=== PATIENT | female | born 1930 | race Caucasian/White ===

== ENCOUNTER 2016-04-26 09:27 | Day surgery (SDC) | payer MEDICARE, OTHER ==
[2016-04-24 11:23] VITALS: BMI 39.4
[~2016-04-26 09:27] MED LIST: LACTATED RINGERS 1,000 ML IV SCH; Pre Op ABX Message 1 EACH MISC MISCELLANE ONE; TETRACAINE 0.5% OPHTH (PF) DROPS 4 ML BTL OP ONE; TIMOLOL 0.5% OPHTH SOLN (PF) 0.2 ML DROPERETTE OP ONE
[2016-04-26] MEDS: CYCLOPENTOLATE 1% OPHTH SOLN 2 ML BTL OP ONE ×3 (12:33→12:56)
[2016-04-26] MEDS: PHENYLEPHRINE 2.5% OPHTH DRP 2ML OP ONE ×3 (12:36→13:01)
[2016-04-26] MEDS ORDERED: LIDOCAINE 1% 20 ML VIAL (10MG/ML) FOR IV START INTRADERMA ONE (12:55)
[2016-04-26 13:01] VITALS: RESP 16; TEMP 97.7
[2016-04-26] MEDS ORDERED: fentaNYL (PF) 50 MCG/ML 2 ML AMP ONE (13:07)
[2016-04-26] MEDS ORDERED: MIDAZOLAM 2 MG/2 ML VIAL ONE (13:07)
[2016-04-26] MEDS ORDERED: LIDOCAINE 1% (PF) 10MG/ML VIAL MISCELLANE ONE (13:16)
[2016-04-26] MEDS ORDERED: BALANCED SALT IRRIG SOLN COMB2 15 ML IRRIG.SOLN INTRAOCULA ONE (13:16)
[2016-04-26] MEDS ORDERED: HYALURONATE SODIUM INTRAOCULAR 1 EACH SYRINGE (12MG/ML) INTRAOCULA ONE (13:16)
[2016-04-26] MEDS ORDERED: MOXIFLOXACIN HCL 0.5% DROPS 3 ML BTL LEFT EYE ONE (13:19)
[2016-04-26] MEDS ORDERED: EPINEPHrine (PF) 0.3 ML in BALANCED SALT IRRIG SOLN COMB2 500 ML IRRIGATION ONE (13:20)
--- NOTE | 2016-04-26 13:39 | P.OP ---
Date of Procedure: 04/26/16 Preoperative Diagnosis: Ns & CS Postoperative Diagnosis: same Procedure(s) Performed: PIOL, OS Implants: PCB00 23.00 Anesthesia: MAC Surgeon: Ralph Isbell Pathology: none sent Condition: stable Disposition: same day Indications for Procedure: blurry vision Operative Findings: No complications
[2016-04-26 14:15] VITALS: BP 140/77; PULSE 55
--- NOTE | 2016-04-26 21:53 | OP ---
DATE OF SERVICE: 04/26/2016 SURGEON: RYAN PAREKH MD BRICKLAYER SUPERVISOR: PREOPERATIVE DIAGNOSES: Nuclear sclerosis, cortical sclerosis. POSTOPERATIVE DIAGNOSES: Nuclear sclerosis, cortical sclerosis. OPERATION: Phacoemulsification of cataract and intraocular lens implant of the left eye. ANESTHESIA: ESTIMATED BLOOD LOSS: Zero. SPECIMEN TAKEN: None. NARRATIVE: After obtaining the appropriate consent, the patient was brought to the Operating Room where the patient was placed under cardiac monitoring and prepped and draped in the usual sterile manner. At the 5 o'clock position a 15 degree super sharp blade was used to create a paracentesis followed by instillation of 1% Xylocaine MPF 50:50 mix with BSS into the anterior chamber. This was followed by Amvisc to stabilize the anterior chamber. At the 3 o'clock position a self-sealing corneal flap incision was created using 2.8 mm alaina keratome. A cystotome was used to initiate a continuous tear capsulorrhexis which was completed with the Utrata forceps. A Binkhorst cannula was used to hydrodissect the lens nucleus followed by hydrodelineation. Phacoemulsification of the lens was performed utilizing phacochop in 16.26 seconds at 15% power. The remaining cortical material was removed using the irrigation aspiration mode followed by additional 1% Xylocaine MPF into the anterior chamber followed by viscoelastic to stabilize the capsular bag. An JET PCB 00 23.0 diopter posterior chamber lens was placed into the capsular bag without difficulty. The remaining viscoelastic material was removed from the anterior chamber with the irrigation/aspiration. Balanced salt solution was used to normalize the intraocular pressure. The incision was checked for watertight integrity. The patient then received 2 drops of 0.5% timolol followed by 2 drops Vigamox, was lightly patched and shielded in the usual manner. There were no complications from the procedure. The patient tolerated the procedure well and was returned to recovery in good condition.
== END 2016-04-26 14:39 | disposition home or self-care (01) ==
LOC: OR 09:27
PROVIDERS: ATTEND Ophthalmology
DX: H25.012 Cortical age-related cataract, left eye (principal); H25.10 Age-related nuclear cataract, unspecified eye; J45.909 Unspecified asthma, uncomplicated; I51.9 Heart disease, unspecified; I10 Essential (primary) hypertension; K21.9 Gastro-esophageal reflux disease without esophagitis; I25.10 Atherosclerotic heart disease of native coronary artery without angina pectoris; E78.5 Hyperlipidemia, unspecified; I25.2 Old myocardial infarction; Z79.01 Long term (current) use of anticoagulants; Z79.82 Long term (current) use of aspirin; Z79.02 Long term (current) use of antithrombotics/antiplatelets; Z79.891 Long term (current) use of opiate analgesic; Z79.899 Other long term (current) drug therapy; Z88.1 Allergy status to other antibiotic agents; Z88.0 Allergy status to penicillin; Z88.2 Allergy status to sulfonamides; Z88.8 Allergy status to other drugs, medicaments and biological substances
CPT/HCPCS: 66984; C1780; J2250; J0171; J3010; J2001; 99152; 99153

== ENCOUNTER 2016-06-21 06:18 | Day surgery (SDC) | payer BC, MEDICARE, OTHER ==
[2016-06-19 15:54] VITALS: BMI 39.4
[~2016-06-21 06:18] MED LIST changes: +HYDROmorphone 1 MG/ML 1 ML SYRINGE IVP PRN; +ONDANSETRON 4 MG/2 ML VIAL IVP ONE
[2016-06-21] MEDS: CYCLOPENTOLATE 1% OPHTH SOLN 2 ML BTL OP ONE ×3 (06:48→07:02)
[2016-06-21] MEDS: PHENYLEPHRINE 2.5% OPHTH DRP 2ML OP NR ×3 (06:51→07:05)
[2016-06-21 06:56] VITALS: TEMP 98.1
[2016-06-21] MEDS ORDERED: LIDOCAINE 1% 20 ML VIAL (10MG/ML) FOR IV START INTRADERMA ONE (07:09)
[2016-06-21] MEDS ORDERED: fentaNYL (PF) 50 MCG/ML 2 ML AMP ONE (08:26)
[2016-06-21] MEDS ORDERED: MIDAZOLAM 2 MG/2 ML VIAL ONE (08:26)
[2016-06-21] MEDS ORDERED: BALANCED SALT IRRIG SOLN COMB2 15 ML IRRIG.SOLN INTRAOCULA ONE (08:40)
[2016-06-21] MEDS ORDERED: HYALURONATE SODIUM INTRAOCULAR 1 EACH SYRINGE (12MG/ML) INTRAOCULA ONE (08:40)
[2016-06-21] MEDS ORDERED: LIDOCAINE 1% (PF) 10MG/ML VIAL SQ ONE (08:41)
[2016-06-21] MEDS ORDERED: MOXIFLOXACIN HCL 0.5% DROPS 3 ML BTL RIGHT EYE ONE (08:41)
[2016-06-21] MEDS ORDERED: EPINEPHrine (PF) 0.3 ML in BALANCED SALT IRRIG SOLN COMB2 500 ML IRRIGATION ONE (08:42)
--- NOTE | 2016-06-21 08:51 | P.OP ---
Date of Procedure: 06/21/16 Preoperative Diagnosis: NS & CS Postoperative Diagnosis: same Procedure(s) Performed: PIOL OD Implants: PCB00 22.50 Anesthesia: MAC Surgeon: Ralph Isbell Pathology: none sent Condition: stable Disposition: same day Indications for Procedure: blurry vision Operative Findings: no complications
[2016-06-21 09:15] VITALS: BP 134/74; PULSE 56; RESP 16
--- NOTE | 2016-06-22 08:08 | OP ---
DATE OF SERVICE: 06/21/2016 SURGEON: RYAN PAREKH MD WHEEL MILL OPERATOR: PREOPERATIVE DIAGNOSIS: Nuclear sclerosis. POSTOPERATIVE DIAGNOSIS: Nuclear sclerosis. OPERATION: Phacoemulsification of cataract and intraocular lens implant of the right eye. ESTIMATED BLOOD LOSS: Zero. SPECIMEN TAKEN: None. NARRATIVE: After obtaining the appropriate consent, the patient was brought to the Operating Room where the patient was placed under cardiac monitoring and prepped and draped in the usual sterile manner. At the 11 o'clock position a 15 degree super sharp blade was used to create a paracentesis followed by instillation of 1% Xylocaine MPF 50:50 mix with BSS into the anterior chamber. This was followed by Amvisc to stabilize the anterior chamber. At the 9 o'clock position a self-sealing corneal flap incision was created using 2.8 mm alaina keratome. A cystotome was used to initiate a continuous tear capsulorrhexis which was completed with the Utrata forceps. A Binkhorst cannula was used to hydrodissect the lens nucleus followed by hydrodelineation. Phacoemulsification of the lens was performed utilizing phacochop in 23.66 seconds at 14% power. The remaining cortical material was removed using the irrigation aspiration mode followed by additional 1% Xylocaine MPF into the anterior chamber followed by viscoelastic to stabilize the capsular bag. An JET PCB00 22.5 diopters posterior chamber lens was placed into the capsular bag without difficulty. The remaining viscoelastic material was removed from the anterior chamber with the irrigation/aspiration. Balanced salt solution was used to normalize the intraocular pressure. The incision was checked for watertight integrity. The patient then received 2 drops of 0.5% timolol followed by 2 drops Vigamox, was lightly patched and shielded in the usual manner. There were no complications from the procedure. The patient tolerated the procedure well and was returned to recovery in good condition.
== END 2016-06-21 09:41 | disposition home or self-care (01) ==
LOC: OR 06:18
PROVIDERS: ATTEND Ophthalmology
DX: H25.11 Age-related nuclear cataract, right eye (principal); Z96.1 Presence of intraocular lens; H04.123 Dry eye syndrome of bilateral lacrimal glands; D31.31 Benign neoplasm of right choroid; H52.4 Presbyopia; H52.03 Hypermetropia, bilateral; I25.10 Atherosclerotic heart disease of native coronary artery without angina pectoris; I10 Essential (primary) hypertension; E78.5 Hyperlipidemia, unspecified; I25.2 Old myocardial infarction; J45.909 Unspecified asthma, uncomplicated; E07.9 Disorder of thyroid, unspecified; Z79.82 Long term (current) use of aspirin; Z79.02 Long term (current) use of antithrombotics/antiplatelets; Z79.51 Long term (current) use of inhaled steroids; Z79.891 Long term (current) use of opiate analgesic; Z79.899 Other long term (current) drug therapy; Z88.1 Allergy status to other antibiotic agents; Z88.0 Allergy status to penicillin; Z88.2 Allergy status to sulfonamides; Z88.8 Allergy status to other drugs, medicaments and biological substances
CPT/HCPCS: 66984; C1780; J2250; J0171; J3010; J2001

== ENCOUNTER 2017-02-12 14:53 | Emergency (ER) | payer MEDICARE ==
[2017-02-12] MEDS ORDERED: KETOROLAC 30 MG/ML 1 ML VIAL IM STA (16:08)
[2017-02-12] MEDS ORDERED: MORPHINE SULFATE 10 MG/ML SYRINGE IM STA (16:08)
--- NOTE | 2017-02-12 17:20 | ED ---
Back Pain HPI - General Chief Complaint: Back Pain/Injury Stated Complaint: Back Pain Time Seen by Provider: 02/12/17 15:14 Source: patient Limitations: no limitations - History of Present Illness Initial Comments: 86-year-old female with past medical history of spinal stenosis presented for evaluation of chronic back pain. She states over the last month her pain is been worsening over this is the same pain she has been having only worse in intensity. She denies any preceding trauma or injuries and states that it is only gradually been worsening. She recently switched primary care providers due to her PCP retiring and made an appointment with her new provider however was informed that they would not provide her with pain control. She was given follow-up with a pain specialist but was told by them that they could not see her until April. She states that she has not was at home which have not provided any pain relief however she is running out. He denies any saddle anesthesia, lower extremity weakness, or bowel or bladder irregularities. - Related Data Home Medications Medication Instructions Recorded Confirmed Aspirin 81 mg PO HS 06/12/14 02/12/17 Atenolol [Tenormin] 25 mg PO BID 06/12/14 02/12/17 Calcium Carbonate/Vitamin D3 1 tab PO DAILY 06/12/14 02/12/17 [Calcium 600-Vit D3 400 Tablet] [place]-3 Fatty Acids/Fish Oil [Fish 1 cap PO DAILY 06/12/14 02/12/17 Oil 1,000 mg Softgel] HYDROcodone/APAP 5-325MG [[place] 1 tab PO Q6H PRN 02/25/15 02/12/17 5-325] Sennosides [Senokot] 8.6 mg PO DAILY PRN 02/25/15 02/12/17 diphenhydrAMINE [Benadryl] 25 mg PO DAILY PRN 02/25/15 02/12/17 Vits A,C,E/Lutein/Minerals 1 tab PO DAILY 09/01/15 02/12/17 [Ocuvite with Lutein Tablet] amLODIPine BESYLATE [Norvasc] 2.5 mg PO DAILY 09/01/15 02/12/17 Propylene Glycol/Peg 400/Pf 1 drop BOTH EYES TID 09/02/15 02/12/17 [Systane 0.3-0.4% Eye Drops] Docusate [Colace] 100 mg PO DAILY 04/24/16 02/12/17 Furosemide [Lasix] 20 mg PO DAILY PRN 04/24/16 02/12/17 Losartan Potassium [Cozaar] 25 mg PO DAILY 04/24/16 02/12/17 Mometasone Inhalr 220 Mcg/Puff 2 puff INHALATION RT-DAILY PRN 04/24/16 02/12/17 [Asmanex] Pantoprazole Sodium 40 mg PO DAILY 04/24/16 02/12/17 Albuterol Sulfate [Proair Hfa] 2 puff INHALATION RT-Q6H PRN 02/12/17 02/12/17 Isosorbide Mononitrate ER [Imdur] 60 mg PO DAILY 02/12/17 02/12/17 Nabumetone 500 mg PO BID 02/12/17 02/12/17 Nitroglycerin Sl Tabs [Nitrostat] 0.4 mg SUBLINGUAL Q5M PRN 02/12/17 02/12/17 Polyethylene Glycol 3350 [Miralax] 17 gm PO DAILY PRN 02/12/17 02/12/17 Previous Rx's Medication Instructions Recorded Atorvastatin [Lipitor] 80 mg PO HS #30 tab 09/03/15 Levothyroxine Sodium [Synthroid] 50 mcg PO DAILY #30 tab 09/03/15 Montelukast [Singulair] 10 mg PO HS #30 tab 09/03/15 oxyCODONE-APAP 7.5-325MG [Percocet 1 tab PO Q6HR #40 tab 02/12/17 7.5-325 mg] Allergies Allergy/AdvReac Type Severity Reaction Status Date / Time ciprofloxacin [From Cipro] Allergy Rash/Hives Verified 02/12/17 16:23 ciprofloxacin HCl Allergy Rash/Hives Verified 02/12/17 16:23 [From Cipro] clindamycin Allergy Rash/Hives Verified 02/12/17 16:23 fluticasone propionate Allergy Unknown Verified 02/12/17 16:23 [From Advair Diskus] ibuprofen [From Motrin] Allergy Unknown Verified 02/12/17 16:23 lisinopril Allergy Unknown Verified 02/12/17 16:23 naproxen [From Naprosyn] Allergy Unknown Verified 02/12/17 16:23 Penicillins Allergy Rash/Hives Verified 02/12/17 16:23 salmeterol xinafoate Allergy Unknown Verified 02/12/17 16:23 [From Advair Diskus] Sulfa (Sulfonamide Allergy Unknown Verified 02/12/17 16:23 Antibiotics) sulfamethoxazole Allergy Unknown Verified 02/12/17 16:23 [From Bactrim] trimethoprim [From Bactrim] Allergy Unknown Verified 02/12/17 16:23 kinafoate Allergy Unknown Uncoded 02/12/17 15:10 propionate Allergy Unknown Uncoded 02/12/17 15:10 salmetrol Allergy Unknown Uncoded 02/12/17 15:10 Review of Systems ROS Statement: Those systems with pertinent positive or pertinent negative responses have been documented in the HPI. ROS Other: All systems not noted in ROS Statement are negative. Constitutional: Denies: fever, chills Eyes: Denies: eye pain, vision change ENT: Denies: ear pain, throat pain Respiratory: Denies: cough, dyspnea Cardiovascular: Denies: chest pain, palpitations Endocrine: Denies: fatigue, polydipsia, polyuria Gastrointestinal: Denies: abdominal pain, nausea, vomiting Genitourinary: Denies: urgency, dysuria, frequency, hematuria, discharge Musculoskeletal: Reports: back pain. Denies: arthralgia, myalgia Skin: Denies: rash, lesions Neurological: Denies: headache, weakness Psychiatric: Denies: anxiety, depression Hematological/Lymphatic: Denies: easy bleeding, easy bruising Past Medical History Past Medical History: Asthma, Coronary Artery Disease (CAD), Cancer, Chest Pain / Angina, Hyperlipidemia, Hypertension, Myocardial Infarction ([place]), Osteoarthritis (OA), Pneumonia Additional Past Medical History / Comment(s): spinal stenosis, osteoporosis, urinary incontinence , [place] x 3, constipation Last Myocardial Infarction Date:: 09/2015 History of Any Multi-Drug Resistant Organisms: None Reported Past Surgical History: Adenoidectomy, Cholecystectomy, Heart Catheterization, Joint Replacement, Orthopedic Surgery, Tonsillectomy Additional Past Surgical History / Comment(s): Athroscopic alessandro knees, Total joint replacement R knee, ORIF with rods to bilateral femurs, L leg vein stripping, colonoscopy, cataract removed left eye Past Anesthesia/Blood Transfusion Reactions: Postoperative Nausea & Vomiting ( PONV) Past Psychological History: No Psychological Hx Reported Smoking Status: Never smoker Past Alcohol Use History: None Reported Past Drug Use History: None Reported - Past Family History Father Family Medical History: Coronary Artery Disease (CAD), CVA/TIA, Myocardial Infarction ([place]) Additional Family Medical History / Comment(s): Father at age 94 yrs. He also had arthiritis. Mother Family Medical History: No Reported History Additional Family Medical History / Comment(s): Mother was legally blind from DM. She had alot of back and stomach problems. General Exam Limitations: no limitations General appearance: alert, in no apparent distress Head exam: Present: atraumatic, normocephalic, normal inspection Eye exam: Present: normal appearance, PERRL, EOMI. Absent: scleral icterus, conjunctival injection, periorbital swelling ENT exam: Present: normal exam, mucous membranes moist Neck exam: Present: normal inspection. Absent: tenderness, meningismus, lymphadenopathy Respiratory exam: Present: normal lung sounds bilaterally. Absent: respiratory distress, wheezes, rales, rhonchi, stridor Cardiovascular Exam: Present: regular rate, normal rhythm, normal heart sounds. Absent: systolic murmur, diastolic murmur, rubs, gallop, clicks GI/Abdominal exam: Present: soft, normal bowel sounds. Absent: distended, tenderness, guarding, rebound, rigid Rectal exam: Present: deferred Extremities exam: Present: normal inspection, full ROM, normal capillary refill. Absent: tenderness, pedal edema, joint swelling, calf tenderness Back exam: Present: tenderness, paraspinal tenderness. Absent: normal inspection, full ROM, CVA tenderness (R), CVA tenderness (L), muscle spasm, vertebral tenderness Psychiatric exam: Present: normal affect, normal mood Skin exam: Present: warm, dry, intact, normal color. Absent: rash Course Vital Signs 02/12/17 02/12/17 15:06 17:24 Temperature 98.4 F 97 F L Pulse Rate 64 65 Respiratory 16 18 Rate Blood Pressure 142/67 150/70 O2 Sat by Pulse 98 98 Oximetry Medical Decision Making - Medical Decision Making 86-year-old female with past medical history of spinal stenosis presented for evaluation of lower back pain that she states is acute on chronic , or sitting over the last month. On physical examination there is tenderness to palpation however no overlying skin changes. Straight leg test is negative bilaterally. Saddle anesthesia is absent and there is no lower extremity weakness. Reflexes are intact. At this time no imaging is indicated as however she was given pain control. On reevaluation she had marketed improvement in her symptoms. She was informed that she be given a pain prescription with instructions to follow-up with her primary care physician provider to help her establish a closer follow-up with the pain clinic. She was further advised to return to this facility if her symptoms should worsen or persist. The patient acknowledged an understanding of this information and agreed with this plan of care. Disposition Clinical Impression: Lumbar back pain Disposition: HOME SELF-CARE Condition: Stable Instructions: Chronic Back Pain (ED) Additional Instructions: Please use medication as discussed. Please follow up with family doctor if symptoms have not improved over the next two days. Please return to the emergency room if your symptoms increase or worsen or for any other concerns. Prescriptions: oxyCODONE-APAP 7.5-325MG [Percocet 7.5-325 mg] 1 tab PO Q6HR #40 tab Referrals: Hamzah Siddiqi DO [Primary Care Provider] - 1-2 days Time of Disposition: 17:19
[2017-02-12 17:28] VITALS: BP 150/70; PULSE 65; RESP 18; TEMP 97
== END 2017-02-12 17:28 | disposition home or self-care (01) ==
LOC: EC 14:53
DX: M54.5 Low back pain (principal); G89.29 Other chronic pain; I25.119 Atherosclerotic heart disease of native coronary artery with unspecified angina pectoris; E78.5 Hyperlipidemia, unspecified; I10 Essential (primary) hypertension; I25.2 Old myocardial infarction; M19.90 Unspecified osteoarthritis, unspecified site; Z79.82 Long term (current) use of aspirin; Z79.899 Other long term (current) drug therapy; Z88.0 Allergy status to penicillin; Z88.2 Allergy status to sulfonamides; Z88.6 Allergy status to analgesic agent; Z88.8 Allergy status to other drugs, medicaments and biological substances
CPT/HCPCS: 99283; 96372 ×2; J2270; J1885

== ENCOUNTER 2017-02-28 10:33 | Emergency (ER) | payer MEDICARE, OTHER ==
[2017-02-28 11:59] LABS: Appearance,Urine Clear (Clear); Bacteria,Urine Rare /hpf; Bilirubin,Urine Negative (Negative); Glucose,Urine (UA) Negative (Negative); Ketones,Urine Negative (Negative); Leukocyte Esterase,Urine Trace (Negative); Mucus,Urine Rare /hpf; Nitrite,Urine Negative (Negative); PH, Urine 5.5 (5.0-8.0); Particle Count 674; Protein,Urine Negative (Negative); RBC,Urine <1 /hpf (0-5); Specific Gravity,Urine 1.005 (1.001-1.035); Squamous Epithelial Cell,Urine 2 /hpf (0-4); UA Billing (MACRO vs. MICRO) MICRO; Urobilinogen,Urine <2.0 mg/dL (<2.0); WBC,Urine 1 /hpf (0-5)
--- NOTE | 2017-02-28 12:48 | CT ---
EXAMINATION TYPE: CT lumbar spine wo con DATE OF EXAM: 02/28/2017 COMPARISON: NONE HISTORY: pain CT DLP: 960.[address] of the lumbar spine was performed. Bone and soft tissue window settings are submitted as well as coronal and sagittal reconstructions. L1-L2: Mild superior endplate compression fracture of L2 with loss of height estimated at approximate ly 15%. No evidence for bony retropulsion. No evidence for instability. Vacuum disc changes are noted at L1-2. Moderate circumferential disc bulge results in central stenosis at this level and bilateral foraminal encroachment. L2-L3: Moderate disc space narrowing. Moderate circumferential disc bulge. Effacement ventral thecal sac with mild central stenosis noted in bilateral foraminal encroachment left greater than right. L3-L4: 4 mm anterolisthesis L3 on L4. Moderate degenerative bulging greatest posteriorly with moderat e central stenosis and bilateral foraminal encroachment. Facet joint arthropathy with hypertrophic ch anges of the ligamentum flavum. L4-L5: Severe degenerative disc disease with vacuum disc. Moderate to severe circumferential disc bul ge. Severe central stenosis. Bilateral foraminal encroachment. L5-S1: Moderate degenerative disc disease . No evidence for disc herniation or central stenosis. No f oraminal encroachment. No paraspinal masses are identified. Lumbar segments are free if fracture. IMPRESSION: 1. Superior endplate compression fracture L2 with no evidence for bony retropulsion or instability. 2. Multilevel degenerative disc disease with multilevel central stenosis.
--- NOTE | 2017-02-28 13:22 | ED ---
Back Pain HPI - General Chief Complaint: Back Pain/Injury Stated Complaint: Back Pain Time Seen by Provider: 02/28/17 10:58 Source: patient, RN notes reviewed Limitations: no limitations - History of Present Illness Initial Comments: 86-year-old female presented emergency from for low back pain. Patient's been having ongoing back process. Patient states she was seen here couple weeks ago was given pain medication. Patient states cannot tolerate the pain anymore. Patient has not had any recent imaging. Patient denies any bowel bladder incontinence or retention. She states sometimes that she cannot to the bathroom fast enough and just doesn't make it. Patient denies any fever, chills , nausea vomiting. - Related Data Home Medications Medication Instructions Recorded Confirmed Aspirin 81 mg PO HS 06/12/14 02/28/17 Atenolol [Tenormin] 25 mg PO BID 06/12/14 02/28/17 Calcium Carbonate/Vitamin D3 1 tab PO DAILY 06/12/14 02/28/17 [Calcium 600-Vit D3 400 Tablet] [place]-3 Fatty Acids/Fish Oil [Fish 1 cap PO DAILY 06/12/14 02/28/17 Oil 1,000 mg Softgel] Sennosides [Senokot] 8.6 mg PO DAILY PRN 02/25/15 02/28/17 diphenhydrAMINE [Benadryl] 25 mg PO DAILY PRN 02/25/15 02/28/17 Vits A,C,E/Lutein/Minerals 1 tab PO DAILY 09/01/15 02/28/17 [Ocuvite with Lutein Tablet] amLODIPine BESYLATE [Norvasc] 2.5 mg PO DAILY 09/01/15 02/28/17 Propylene Glycol/Peg 400/Pf 1 drop BOTH EYES TID 09/02/15 02/28/17 [Systane 0.3-0.4% Eye Drops] Docusate [Colace] 100 mg PO DAILY 04/24/16 02/28/17 Furosemide [Lasix] 20 mg PO DAILY PRN 04/24/16 02/28/17 Losartan Potassium [Cozaar] 25 mg PO DAILY 04/24/16 02/28/17 Mometasone Inhalr 220 Mcg/Puff 2 puff INHALATION RT-DAILY PRN 04/24/16 02/28/17 [Asmanex] Pantoprazole Sodium 40 mg PO DAILY 04/24/16 02/28/17 Albuterol Sulfate [Proair Hfa] 2 puff INHALATION RT-Q6H PRN 02/12/17 02/28/17 Isosorbide Mononitrate ER [Imdur] 60 mg PO BID 02/12/17 02/28/17 Nabumetone 500 mg PO BID 02/12/17 02/28/17 Nitroglycerin Sl Tabs [Nitrostat] 0.4 mg SUBLINGUAL Q5M PRN 02/12/17 02/28/17 Polyethylene Glycol 3350 [Miralax] 17 gm PO DAILY PRN 02/12/17 02/28/17 Previous Rx's Medication Instructions Recorded Atorvastatin [Lipitor] 80 mg PO HS #30 tab 09/03/15 Levothyroxine Sodium [Synthroid] 50 mcg PO DAILY #30 tab 09/03/15 Montelukast [Singulair] 10 mg PO HS #30 tab 09/03/15 HYDROcodone/APAP 10-325MG [[place] 1 tab PO Q6H PRN #30 tab 02/28/17 10-325] Allergies Allergy/AdvReac Type Severity Reaction Status Date / Time ciprofloxacin [From Cipro] Allergy Rash/Hives Verified 02/28/17 11:16 ciprofloxacin HCl Allergy Rash/Hives Verified 02/28/17 11:16 [From Cipro] clindamycin Allergy Rash/Hives Verified 02/28/17 11:16 fluticasone propionate Allergy Unknown Verified 02/28/17 11:16 [From Advair Diskus] ibuprofen [From Motrin] Allergy Unknown Verified 02/28/17 11:16 isosorbide [From Imdur] Allergy Unknown Verified 02/28/17 11:16 lisinopril Allergy Unknown Verified 02/28/17 11:16 naproxen [From Naprosyn] Allergy Unknown Verified 02/28/17 11:16 Penicillins Allergy Rash/Hives Verified 02/28/17 11:16 salmeterol xinafoate Allergy Unknown Verified 02/28/17 11:16 [From Advair Diskus] Sulfa (Sulfonamide Allergy Unknown Verified 02/28/17 11:16 Antibiotics) sulfamethoxazole Allergy Unknown Verified 02/28/17 11:16 [From Bactrim] trimethoprim [From Bactrim] Allergy Unknown Verified 02/28/17 11:16 kinafoate Allergy Unknown Uncoded 02/28/17 10:44 propionate Allergy Unknown Uncoded 02/28/17 10:44 salmetrol Allergy Unknown Uncoded 02/28/17 10:44 Review of Systems ROS Statement: Those systems with pertinent positive or pertinent negative responses have been documented in the HPI. ROS Other: All systems not noted in ROS Statement are negative. Past Medical History Past Medical History: Asthma, Coronary Artery Disease (CAD), Cancer, Chest Pain / Angina, Hyperlipidemia, Hypertension, Myocardial Infarction ([place]), Osteoarthritis (OA), Pneumonia Additional Past Medical History / Comment(s): spinal stenosis, osteoporosis, urinary incontinence , [place] x 3, constipation Last Myocardial Infarction Date:: 09/2015 History of Any Multi-Drug Resistant Organisms: None Reported Past Surgical History: Adenoidectomy, Cholecystectomy, Heart Catheterization, Joint Replacement, Orthopedic Surgery, Tonsillectomy Additional Past Surgical History / Comment(s): Athroscopic alessandro knees, Total joint replacement R knee, ORIF with rods to bilateral femurs, L leg vein stripping, colonoscopy, cataract removed left eye Past Anesthesia/Blood Transfusion Reactions: Postoperative Nausea & Vomiting ( PONV) Past Psychological History: No Psychological Hx Reported Smoking Status: Never smoker Past Alcohol Use History: None Reported Past Drug Use History: None Reported - Past Family History Father Family Medical History: Coronary Artery Disease (CAD), CVA/TIA, Myocardial Infarction ([place]) Additional Family Medical History / Comment(s): Father at age 94 yrs. He also had arthiritis. Mother Family Medical History: No Reported History Additional Family Medical History / Comment(s): Mother was legally blind from DM. She had alot of back and stomach problems. General Exam Limitations: no limitations General appearance: alert, in no apparent distress Head exam: Present: atraumatic, normocephalic, normal inspection Respiratory exam: Present: normal lung sounds bilaterally. Absent: respiratory distress, wheezes, rales, rhonchi, stridor Cardiovascular Exam: Present: regular rate, normal rhythm, normal heart sounds. Absent: systolic murmur, diastolic murmur, rubs, gallop, clicks GI/Abdominal exam: Present: soft, normal bowel sounds. Absent: distended, tenderness, guarding, rebound, rigid Back exam: Present: full ROM, tenderness, paraspinal tenderness, vertebral tenderness Neurological exam: Present: alert, oriented X3, CN II-XII intact, reflexes normal. Absent: motor sensory deficit Course Vital Signs 02/28/17 10:41 Temperature 98.3 F Pulse Rate 74 Respiratory 18 Rate Blood Pressure 117/57 O2 Sat by Pulse 97 Oximetry Medical Decision Making - Medical Decision Making 86-year-old female presented for low back pain. Patient has CT that shows compression fracture L2. Patient given pain medication and follow-up with orthopedics. Return parameters were discussed. - Lab Data Lab Results 02/28/17 Range/Units 11:45 Urine Color Light Yellow Urine Appearance Clear (Clear) Urine pH 5.5 (5.0-8.0) Ur Specific Center 1.005 (1.001-1.035) Urine Protein Negative (Negative) Urine Glucose (UA) Negative (Negative) Urine Ketones Negative (Negative) Urine Blood Negative (Negative) Urine Nitrite Negative (Negative) Urine Bilirubin Negative (Negative) Urine Urobilinogen <2.0 (<2.0) mg/dL Ur Leukocyte Esterase Trace H (Negative) Urine RBC <1 (0-5) /hpf Urine WBC 1 (0-5) /hpf Ur Squamous Epith Cells 2 (0-4) /hpf Urine Bacteria Rare H (None) /hpf Urine Mucus Rare H (None) /hpf Disposition Clinical Impression: Lumbar compression fracture Disposition: HOME SELF-CARE Condition: Stable Instructions: Vertebral Compression Fracture (ED) Additional Instructions: Please return to the Emergency Department if symptoms worsen or any other concerns. Prescriptions: HYDROcodone/APAP 10-325MG [[place] 10-325] 1 tab PO Q6H PRN #30 tab PRN Reason: pain Referrals: Syed Curiel MD [Primary Care Provider] - 1-2 days Yady Hernandes DO [Doctor of Osteopathic Medicine] - 1-2 days Time of Disposition: 13:22
[2017-02-28 13:49] VITALS: BP 142/67; PULSE 70; RESP 16; TEMP 97.6
== END 2017-02-28 14:14 | disposition home or self-care (01) ==
LOC: EC 10:33
DX: S32.020A Wedge compression fracture of second lumbar vertebra, initial encounter for closed fracture (principal); I25.119 Atherosclerotic heart disease of native coronary artery with unspecified angina pectoris; E78.5 Hyperlipidemia, unspecified; I10 Essential (primary) hypertension; I25.2 Old myocardial infarction; M19.90 Unspecified osteoarthritis, unspecified site; Z79.82 Long term (current) use of aspirin; Z79.899 Other long term (current) drug therapy; Z88.0 Allergy status to penicillin; Z88.1 Allergy status to other antibiotic agents; Z88.2 Allergy status to sulfonamides; Z88.6 Allergy status to analgesic agent; Z88.8 Allergy status to other drugs, medicaments and biological substances; Z98.890 Other specified postprocedural states
CPT/HCPCS: 72131; 81001; 99284

== ENCOUNTER 2017-03-07 18:51 | Observation (INO) | payer MEDICARE, OTHER ==
[2017-03-07] MEDS ORDERED: SODIUM CHLORIDE 0.9% 1,000 ML IV STA (19:15)
[2017-03-07] MEDS ORDERED: MORPHINE SULFATE 5 MG/ML SYRINGE IM STA (19:15)
[2017-03-07] MEDS ORDERED: ONDANSETRON ODT 4 MG TAB PO STA (19:16)
[2017-03-07 19:49] LABS: Appearance,Urine Clear (Clear); Bacteria,Urine Rare /hpf; Bilirubin,Urine Negative (Negative); Glucose,Urine (UA) Negative (Negative); Ketones,Urine Negative (Negative); Leukocyte Esterase,Urine Small (Negative); Mucus,Urine Rare /hpf; Nitrite,Urine Negative (Negative); PH, Urine 5.5 (5.0-8.0); Particle Count 1415; Protein,Urine Negative (Negative); RBC,Urine <1 /hpf (0-5); Specific Gravity,Urine 1.005 (1.001-1.035); Squamous Epithelial Cell,Urine 5 /hpf (0-4); UA Billing (MACRO vs. MICRO) MICRO; Urobilinogen,Urine <2.0 mg/dL (<2.0); WBC,Urine 5 /hpf (0-5)
[2017-03-07 20:16] LABS: Basophils # (A) 0.1 k/uL (0-0.2); Basophils % (A) 1 %; CHCM 33.1; Eosinophils # (A) 0.2 k/uL (0-0.7); Eosinophils % (A) 2 %; HCT 39.1 % (34.0-46.0); Luc # (Auto) 0.14; Luc % (Auto) 1; Lymphocytes # (A) 2.1 k/uL (1.0-4.8); Lymphocytes % (A) 16 %; MCH 30.2 pg (25.0-35.0); MCHC 33.1 g/dL (31.0-37.0); Mean Platelet Volume 7.6; Monocytes # (A) 0.9 k/uL (0-1.0); Monocytes % (A) 6 %; Neutrophils # (A) 10.3 k/uL (1.3-7.7); Neutrophils % (A) 75 %; RDW 13.9 % (11.5-15.5); WBC 13.7 k/uL (3.8-10.6); WBC (Perox) 14.47
[2017-03-07 20:24] LABS: ALT 47 U/L (9-52); AST 18 U/L (14-36); Alkaline Phosphatase 87 U/L (38-126); Anion Gap 11 mmol/L; Blood Urea Nitrogen 10 mg/dL (7-17); Calcium 10.5 mg/dL (8.4-10.2); Carbon Dioxide 23 mmol/L (22-30); Chloride 101 mmol/L (98-107); Glucose 150 mg/dL (74-99); Non-African American GFR(MDRD) >60 (>60 ml/min/1.73 sqM); Potassium 4.4 mmol/L (3.5-5.1); Sodium 135 mmol/L (137-145); Total Bilirubin 0.4 mg/dL (0.2-1.3); Total Protein 7.3 g/dL (6.3-8.2)
[2017-03-07] MEDS ORDERED: MORPHINE SULFATE 5 MG/ML SYRINGE IVP STA (20:24)
[2017-03-07] MEDS ORDERED: ACETAMINOPHEN TAB 325 MG TAB PO PRN (20:49)
[2017-03-07] MEDS ORDERED: NALOXONE 0.4 MG/ML 1 ML VIAL IV PRN (20:49)
--- NOTE | 2017-03-07 20:49 | ED ---
Back Pain HPI - General Chief Complaint: Back Pain/Injury Stated Complaint: Back Pain Time Seen by Provider: 03/07/17 19:00 Source: patient Limitations: no limitations - History of Present Illness Initial Comments: 6 years old female came in with excruciating back pain she does have a history of for lumbar compression fractures degenerative joint disease and spinal stenosis currently she seen Dr. Lewis spinal surgeon she has a MRI scheduled the near future and now recently she had dull a CAT scan done and she was started on a tramadol, she took several of those pills today and that did not help her at all, she has tried hydrocodone Percocets in the past without great deal of benefit area denies any headache no neck stiffness no chest pain or shortness of breath no abdominal pain no frequency urgency dysuria and she is requesting admission because pain is really very unbearable area there is no weakness of the legs and back pain though does travel up to the ankles both sides right worse in the left, patient denies any bowel or bladder dysfunction - Related Data Home Medications Medication Instructions Recorded Confirmed Aspirin 81 mg PO HS 06/12/14 03/07/17 Atenolol [Tenormin] 25 mg PO BID 06/12/14 03/07/17 Calcium Carbonate/Vitamin D3 1 tab PO DAILY 06/12/14 03/07/17 [Calcium 600-Vit D3 400 Tablet] [employer] Fatty Acids/Fish Oil [Fish 1 cap PO DAILY 06/12/14 03/07/17 Oil 1,000 mg Softgel] Sennosides [Senokot] 8.6 mg PO DAILY PRN 02/25/15 03/07/17 diphenhydrAMINE [Benadryl] 25 mg PO DAILY PRN 02/25/15 03/07/17 Vits A,C,E/Lutein/Minerals 1 tab PO DAILY 09/01/15 03/07/17 [Ocuvite with Lutein Tablet] amLODIPine BESYLATE [Norvasc] 2.5 mg PO DAILY 09/01/15 03/07/17 Propylene Glycol/Peg 400/Pf 1 drop BOTH EYES TID 09/02/15 03/07/17 [Systane 0.3-0.4% Eye Drops] Docusate [Colace] 100 mg PO DAILY 04/24/16 03/07/17 Furosemide [Lasix] 20 mg PO DAILY PRN 04/24/16 03/07/17 Losartan Potassium [Cozaar] 25 mg PO DAILY 04/24/16 03/07/17 Mometasone Inhalr 220 Mcg/Puff 2 puff INHALATION RT-DAILY PRN 04/24/16 03/07/17 [Asmanex] Pantoprazole Sodium 40 mg PO DAILY 04/24/16 03/07/17 Albuterol Sulfate [Proair Hfa] 2 puff INHALATION RT-Q6H PRN 02/12/17 03/07/17 Isosorbide Mononitrate ER [Imdur] 60 mg PO BID 02/12/17 03/07/17 Nabumetone 500 mg PO BID 02/12/17 03/07/17 Nitroglycerin Sl Tabs [Nitrostat] 0.4 mg SUBLINGUAL Q5M PRN 02/12/17 03/07/17 Polyethylene Glycol 3350 [Miralax] 17 gm PO DAILY PRN 02/12/17 03/07/17 traMADol HCL [Ultram] 50 - 100 mg PO Q8H PRN 03/07/17 03/07/17 Previous Rx's Medication Instructions Recorded Atorvastatin [Lipitor] 80 mg PO HS #30 tab 09/03/15 Levothyroxine Sodium [Synthroid] 50 mcg PO DAILY #30 tab 09/03/15 Montelukast [Singulair] 10 mg PO HS #30 tab 09/03/15 HYDROcodone/APAP 10-325MG [[place] 1 tab PO Q6H PRN #30 tab 02/28/17 10-325] Allergies Allergy/AdvReac Type Severity Reaction Status Date / Time ciprofloxacin [From Cipro] Allergy Rash/Hives Verified 03/07/17 19:25 ciprofloxacin HCl Allergy Rash/Hives Verified 03/07/17 19:25 [From Cipro] clindamycin Allergy Rash/Hives Verified 03/07/17 19:25 fluticasone propionate Allergy Unknown Verified 03/07/17 19:25 [From Advair Diskus] ibuprofen [From Motrin] Allergy Unknown Verified 03/07/17 19:25 isosorbide [From Imdur] Allergy Unknown Verified 03/07/17 19:25 lisinopril Allergy Unknown Verified 03/07/17 19:25 naproxen [From Naprosyn] Allergy Unknown Verified 03/07/17 19:25 Penicillins Allergy Rash/Hives Verified 03/07/17 19:25 salmeterol xinafoate Allergy Unknown Verified 03/07/17 19:25 [From Advair Diskus] Sulfa (Sulfonamide Allergy Unknown Verified 03/07/17 19:25 Antibiotics) sulfamethoxazole Allergy Unknown Verified 03/07/17 19:25 [From Bactrim] trimethoprim [From Bactrim] Allergy Unknown Verified 03/07/17 19:25 kinafoate Allergy Unknown Uncoded 02/28/17 10:44 propionate Allergy Unknown Uncoded 02/28/17 10:44 salmetrol Allergy Unknown Uncoded 02/28/17 10:44 Review of Systems ROS Statement: Those systems with pertinent positive or pertinent negative responses have been documented in the HPI. ROS Other: All systems not noted in ROS Statement are negative. Past Medical History Past Medical History: Asthma, Coronary Artery Disease (CAD), Cancer, Chest Pain / Angina, Hyperlipidemia, Hypertension, Myocardial Infarction ([place]), Osteoarthritis (OA), Pneumonia Additional Past Medical History / Comment(s): spinal stenosis, osteoporosis, urinary incontinence , [place] x 3, constipation Last Myocardial Infarction Date:: 09/2015 History of Any Multi-Drug Resistant Organisms: None Reported Past Surgical History: Adenoidectomy, Cholecystectomy, Heart Catheterization, Joint Replacement, Orthopedic Surgery, Tonsillectomy Additional Past Surgical History / Comment(s): Athroscopic alessandro knees, Total joint replacement R knee, ORIF with rods to bilateral femurs, L leg vein stripping, colonoscopy, cataract removed left eye Past Anesthesia/Blood Transfusion Reactions: Postoperative Nausea & Vomiting ( PONV) Past Psychological History: No Psychological Hx Reported Smoking Status: Never smoker Past Alcohol Use History: None Reported Past Drug Use History: None Reported - Past Family History Father Family Medical History: Coronary Artery Disease (CAD), CVA/TIA, Myocardial Infarction ([place]) Additional Family Medical History / Comment(s): Father at age 94 yrs. He also had arthiritis. Mother Family Medical History: No Reported History Additional Family Medical History / Comment(s): Mother was legally blind from DM. She had alot of back and stomach problems. General Exam - General Exam Comments Initial Comments: General: The patient is awake and alert, in via distress back pain is 10 over 10 Skin: Skin is warm and dry and no rashes or lesions are noted. Eye: Pupils are equal, round and reactive to light, extra-ocular movements are intact; there is normal conjunctiva bilaterally. Ears, nose, mouth and throat: There are moist mucous membranes and no oral lesions. Neck: The neck is supple, there is no tenderness or JVD. Cardiovascular: There is a regular rate and rhythm. No murmur, rub or gallop is appreciated. Respiratory: To auscultation bilateral, no wheezing no rhonchi no distress respiratory loco noticed Gastrointestinal: Soft, non-distended, non-tender abdomen without masses or organomegaly noted. There is no rebound or guarding present. Bowel sounds are unremarkable. Back: There is tenderness at the L4 and L5 level in the midline as well as in the right paraspinal area Musculoskeletal: Normal ROM, no tenderness, There is no pedal edema. There is no calf tenderness or swelling. No cords were appreciated. Neurological: CN II-XII intact, Cranial nerves III through XII are intact. There are no obvious motor or sensory deficits. Coordination appears grossly intact. Speech is normal. Psychiatric: Cooperative, appropriate mood & affect, normal judgment. Limitations: no limitations Course Vital Signs 03/07/17 18:57 Temperature 97.8 F Pulse Rate 94 Respiratory 18 Rate Blood Pressure 159/70 O2 Sat by Pulse 96 Oximetry No imaging was done today considering she has a MRI scheduled few days down the road she had a CAT scan done a few days prior and there was no trauma in between considering that intractable pain she be admitted discussed with the Dr. Hoang he agreed with the also discussed with the pharmacy she does have a ALLERGIES to fluticasone wanted to give her some Decadron pharmacy said it's okay to try Decadron Medical Decision Making - Lab Data Result diagrams: 03/07/17 19:58 03/07/17 19:58 Lab Results 03/07/17 03/07/17 03/07/17 Range/Units 19:37 19:58 19:58 WBC 13.7 H (3.8-10.6) k/uL RBC 4.30 (3.80-5.40) m/uL Hgb 13.0 (11.4-16.0) gm/dL Hct 39.1 (34.0-46.0) % MCV 91.0 (80.0-100.0) fL MCH 30.2 (25.0-35.0) pg MCHC 33.1 (31.0-37.0) g/dL RDW 13.9 (11.5-15.5) % Plt Count 247 (150-450) k/uL Neutrophils % 75 % Lymphocytes % 16 % Monocytes % 6 % Eosinophils % 2 % Basophils % 1 % Neutrophils # 10.3 H (1.3-7.7) k/uL Lymphocytes # 2.1 (1.0-4.8) k/uL Monocytes # 0.9 (0-1.0) k/uL Eosinophils # 0.2 (0-0.7) k/uL Basophils # 0.1 (0-0.2) k/uL Sodium 135 L (137-145) mmol/L Potassium 4.4 (3.5-5.1) mmol/L Chloride 101 (98-107) mmol/L Carbon Dioxide 23 (22-30) mmol/L Anion Gap 11 mmol/L BUN 10 (7-17) mg/dL Creatinine 0.72 (0.52-1.04) mg/dL Est GFR (MDRD) Af Amer >60 (>60 ml/min/1.73 sqM) Est GFR (MDRD) Non-Af >60 (>60 ml/min/1.73 sqM) Glucose 150 H (74-99) mg/dL Calcium 10.5 H (8.4-10.2) mg/dL Total Bilirubin 0.4 (0.2-1.3) mg/dL AST 18 (14-36) U/L ALT 47 (9-52) U/L Alkaline Phosphatase 87 (38-126) U/L Total Protein 7.3 (6.3-8.2) g/dL Albumin 4.2 (3.5-5.0) g/dL Urine Color Light Yellow Urine Appearance Clear (Clear) Urine pH 5.5 (5.0-8.0) Ur Specific [place] 1.005 (1.001-1.035) Urine Protein Negative (Negative) Urine Glucose (UA) Negative (Negative) Urine Ketones Negative (Negative) Urine Blood Negative (Negative) Urine Nitrite Negative (Negative) Urine Bilirubin Negative (Negative) Urine Urobilinogen <2.0 (<2.0) mg/dL Ur Leukocyte Esterase Small H (Negative) Urine RBC <1 (0-5) /hpf Urine WBC 5 (0-5) /hpf Ur Squamous Epith Cells 5 H (0-4) /hpf Urine Bacteria Rare H (None) /hpf Urine Mucus Rare H (None) /hpf Disposition Clinical Impression: Severe back pain Disposition: ADMITTED IP TO THIS HOSP Condition: Good Referrals: Syed Curiel MD [Primary Care Provider] - 1-2 days
[2017-03-07] MEDS ORDERED: traMADol 50 MG TAB PO PRN (20:55)
[2017-03-07] MEDS ORDERED: FUROSEMIDE 20 MG TAB PO PRN (20:55)
[2017-03-07] MEDS ORDERED: diphenhydrAMINE 25 MG CAP PO PRN (20:55)
[2017-03-07] MEDS ORDERED: HYDROcodone/APAP 10-325MG 1 EACH TAB PO PRN (20:55)
[2017-03-07] MEDS ORDERED: POLYETHYLENE GLYCOL 3350 17 GM POWD.PACK PO PRN (20:55)
[2017-03-07] MEDS ORDERED: SENNOSIDES 8.6 MG TAB PO PRN (20:55)
[2017-03-07] MEDS ORDERED: NITROGLYCERIN SL TABS 0.4 MG TAB SUBLINGUAL PRN (20:55)
[2017-03-07] MEDS ORDERED: DEXAMETHASONE 4 MG TAB PO STA (20:57)
[2017-03-07 22:21] VITALS: BMI 38.1
[2017-03-07] MEDS: ASPIRIN 81 MG PO SCH (22:28)
[2017-03-07] MEDS: ISOSORBIDE MONONITRATE ER 60 MG TAB.ER.24H PO SCH (22:28)
[2017-03-07] MEDS: DEXAMETHASONE 4 MG TAB PO SCH (22:28)
[2017-03-07] MEDS: ATENOLOL 25 MG TAB PO SCH (22:28)
[2017-03-07] MEDS: ATORVASTATIN 80 MG TAB PO SCH (22:28)
[2017-03-07] MEDS: ARTIFICIAL TEARS-HYPROMELLOSE DROPS 15 ML BTL BOTH EYES SCH (22:29)
[2017-03-07] MEDS: MONTELUKAST 10 MG TAB PO SCH (22:29)
[2017-03-07] MEDS: MORPHINE SULFATE 5 MG/ML SYRINGE IV PRN (23:31)
[2017-03-08] MEDS: MORPHINE SULFATE 5 MG/ML SYRINGE IV PRN ×4 (01:50→11:23)
[2017-03-08] MEDS: LEVOTHYROXINE 50 MCG TAB PO SCH (06:45)
[2017-03-08] MEDS: amLODIPine 2.5 MG TAB PO SCH (08:28)
[2017-03-08] MEDS: ARTIFICIAL TEARS-HYPROMELLOSE DROPS 15 ML BTL BOTH EYES SCH ×3 (08:28→21:59)
[2017-03-08] MEDS: ATENOLOL 25 MG TAB PO SCH ×2 (08:28→21:59)
[2017-03-08] MEDS: DEXAMETHASONE 4 MG TAB PO SCH ×2 (08:29→21:59)
[2017-03-08] MEDS: DOCUSATE 100 MG CAP PO SCH (08:29)
[2017-03-08] MEDS: ISOSORBIDE MONONITRATE ER 60 MG TAB.ER.24H PO SCH ×2 (08:29→21:57)
[2017-03-08] MEDS: PANTOPRAZOLE 40 MG TABLET PO SCH (08:29)
[2017-03-08] MEDS: LOSARTAN 25 MG TAB PO SCH (08:30)
[2017-03-08] MEDS ORDERED: MELOXICAM 7.5 MG TAB PO SCH (09:00)
[2017-03-08] MEDS ORDERED: NON-FORMULARY DRUG (Omega-3 Fatty Acids/Fish Oil [Fish Oil 1,000 Mg Softgel] 1 CAP) PO SCH (09:00)
[2017-03-08] MEDS: BUDESONIDE 1 MG/2 ML NEBU INHALATION SCH ×2 (09:13→20:17)
--- NOTE | 2017-03-08 09:25 | P.CNOR ---
History of Present Illness - HPI Consult date: 03/08/17 Consult reason: low back pain History of present illness: Patient is known to our service. I saw her last week in the office in regards to her low back pain. She is a pleasant 86-year-old female who lives at home and normally is a home ambulator without assistance. Over the past few months she's been having worsening pain at her lower back. She says the pain is primarily at her lower back and her legs particularly at the right lower extremity. She denies any fevers chills or night sweats. She says that she has been trying medications for her low back but her pain pills that document her any significant relief. Has been to the point where she has had root turn to the hospital and been to the emergency room 3 times and was admitted. When we saw her at the office she was found have an L2 compression fracture and evidence of significant degenerative changes with stenosis at her lower lumbar spine. We had reviewed the computed tomography scan of her lumbar spine and I again reviewed it today. We had ordered an MRI of her lumbar spine and her full insurance coverage was only available here at the hospital and they were able to schedule it for her in April. She has been having worsening pain despite her oral medications and presented to the emergency room last night and was admitted hospital. She's not had specific changes in her complaints of low back and lower extremity radiculopathy. She denies any bowel bladder function changes. She denies any chest pain shortness breath Review of Systems As stated in HPI. No changes about her function. She has pain at her right lower extremity and her lower back particular with any sort of walking. She denies any chest pain shortness breath. She denies any loss consciousness or night sweats. Past Medical History Past Medical History: Asthma, Coronary Artery Disease (CAD), Cancer, Chest Pain / Angina, Hyperlipidemia, Hypertension, Myocardial Infarction ([place]), Osteoarthritis (OA), Pneumonia Additional Past Medical History / Comment(s): spinal stenosis, osteoporosis, urinary incontinence , [place] x 3, constipation Last Myocardial Infarction Date:: 09/2015 History of Any Multi-Drug Resistant Organisms: None Reported Past Surgical History: Adenoidectomy, Cholecystectomy, Heart Catheterization, Joint Replacement, Orthopedic Surgery, Tonsillectomy Additional Past Surgical History / Comment(s): Athroscopic alessandro knees, Total joint replacement R knee, ORIF with rods to bilateral femurs, L leg vein stripping, colonoscopy, cataract removed left eye Past Anesthesia/Blood Transfusion Reactions: Postoperative Nausea & Vomiting ( PONV) Past Psychological History: No Psychological Hx Reported Additional Psychological History / Comment(s): . Smoking Status: Never smoker Past Alcohol Use History: None Reported Past Drug Use History: None Reported - Past Family History Father Family Medical History: Coronary Artery Disease (CAD), CVA/TIA, Myocardial Infarction ([place]) Additional Family Medical History / Comment(s): Father at age 94 yrs. He also had arthiritis. Mother Family Medical History: No Reported History Additional Family Medical History / Comment(s): Mother was legally blind from DM. She had alot of back and stomach problems. Medications and Allergies Home Medications Medication Instructions Recorded Confirmed Type Aspirin 81 mg PO HS 06/12/14 03/07/17 History Atenolol [Tenormin] 25 mg PO BID 06/12/14 03/07/17 History Calcium Carbonate/Vitamin D3 1 tab PO DAILY 06/12/14 03/07/17 History [Calcium 600-Vit D3 400 Tablet] [place]-3 Fatty Acids/Fish Oil [Fish 1 cap PO DAILY 06/12/14 03/07/17 History Oil 1,000 mg Softgel] Sennosides [Senokot] 8.6 mg PO DAILY PRN 02/25/15 03/07/17 History diphenhydrAMINE [Benadryl] 25 mg PO DAILY PRN 02/25/15 03/07/17 History Vits A,C,E/Lutein/Minerals 1 tab PO DAILY 09/01/15 03/07/17 History [Ocuvite with Lutein Tablet] amLODIPine BESYLATE [Norvasc] 2.5 mg PO DAILY 09/01/15 03/07/17 History Propylene Glycol/Peg 400/Pf 1 drop BOTH EYES TID 09/02/15 03/07/17 History [Systane 0.3-0.4% Eye Drops] Atorvastatin [Lipitor] 80 mg PO HS #30 tab 09/03/15 03/07/17 Rx Levothyroxine Sodium [Synthroid] 50 mcg PO DAILY #30 tab 09/03/15 03/07/17 Rx Montelukast [Singulair] 10 mg PO HS #30 tab 09/03/15 03/07/17 Rx Docusate [Colace] 100 mg PO DAILY 04/24/16 03/07/17 History Furosemide [Lasix] 20 mg PO DAILY PRN 04/24/16 03/07/17 History Losartan Potassium [Cozaar] 25 mg PO DAILY 04/24/16 03/07/17 History Mometasone Inhalr 220 Mcg/Puff 2 puff INHALATION RT-DAILY PRN 04/24/16 03/07/17 History [Asmanex] Pantoprazole Sodium 40 mg PO DAILY 04/24/16 03/07/17 History Albuterol Sulfate [Proair Hfa] 2 puff INHALATION RT-Q6H PRN 02/12/17 03/07/17 History Isosorbide Mononitrate ER [Imdur] 60 mg PO BID 02/12/17 03/07/17 History Nabumetone 500 mg PO BID 02/12/17 03/07/17 History Nitroglycerin Sl Tabs [Nitrostat] 0.4 mg SUBLINGUAL Q5M PRN 02/12/17 03/07/17 History Polyethylene Glycol 3350 [Miralax] 17 gm PO DAILY PRN 02/12/17 03/07/17 History HYDROcodone/APAP 10-325MG [[place] 1 tab PO Q6H PRN #30 tab 02/28/17 03/07/17 Rx 10-325] traMADol HCL [Ultram] 50 - 100 mg PO Q8H PRN 03/07/17 03/07/17 History Allergies Allergy/AdvReac Type Severity Reaction Status Date / Time ciprofloxacin [From Cipro] Allergy Rash/Hives Verified 03/07/17 19:25 ciprofloxacin HCl Allergy Rash/Hives Verified 03/07/17 19:25 [From Cipro] clindamycin Allergy Rash/Hives Verified 03/07/17 19:25 fluticasone propionate Allergy Unknown Verified 03/07/17 19:25 [From Advair Diskus] ibuprofen [From Motrin] Allergy Unknown Verified 03/07/17 19:25 isosorbide [From Imdur] Allergy Unknown Verified 03/07/17 19:25 lisinopril Allergy Unknown Verified 03/07/17 19:25 naproxen [From Naprosyn] Allergy Unknown Verified 03/07/17 19:25 Penicillins Allergy Rash/Hives Verified 03/07/17 19:25 salmeterol xinafoate Allergy Unknown Verified 03/07/17 19:25 [From Advair Diskus] Sulfa (Sulfonamide Allergy Unknown Verified 03/07/17 19:25 Antibiotics) sulfamethoxazole Allergy Unknown Verified 03/07/17 19:25 [From Bactrim] trimethoprim [From Bactrim] Allergy Unknown Verified 03/07/17 19:25 kinafoate Allergy Unknown Uncoded 02/28/17 10:44 propionate Allergy Unknown Uncoded 02/28/17 10:44 salmetrol Allergy Unknown Uncoded 02/28/17 10:44 Physical Examination Osteopathic Statement: *. No significant issues noted on an osteopathic structural exam other than those noted in the History and Physical/Consult. - L Spine: dermatomal strength & reflexes bilateral Strength: hip flexion: 5/5 (At her back she does not have any abrasions or lacerations or rashes. She does have tenderness diffusely over her low back and paravertebral spasm. Her lower extremities have sustained dorsal flexion plantar flexion and EHL intact. Her thighs and calves soft nontender. She has no pain with internal/external rotation of her hips.) Results - Labs Labs: Abnormal Lab Results - Last 24 Hours (Table) 03/07/17 03/07/17 03/07/17 Range/Units 19:37 19:58 19:58 WBC 13.7 H (3.8-10.6) k/uL Neutrophils # 10.3 H (1.3-7.7) k/uL Sodium 135 L (137-145) mmol/L Glucose 150 H (74-99) mg/dL Calcium 10.5 H (8.4-10.2) mg/dL Ur Leukocyte Esterase Small H (Negative) Ur Squamous Epith Cells 5 H (0-4) /hpf Urine Bacteria Rare H (None) /hpf Urine Mucus Rare H (None) /hpf H & H 03/07/17 Range/Units 19:58 Hgb 13.0 (11.4-16.0) gm/dL Hct 39.1 (34.0-46.0) % Result Diagrams: 03/07/17 19:58 03/07/17 19:58 - Diagnostic results CT Scan - lumbar: report reviewed, image reviewed (I again reviewed the computed tomography scan of her lumbar spine which shows evidence of compression fracture at L2 of undetermined age. She does have significant lumbar degenerative changes and stenosis in her mid lumbar spine and lower lumbar spine.) Assessment and Plan Assessment: L2 compression fracture Exacerbation of low back pain with difficulty ambulating Acute on chronic low back pain Intractable low back pain Lower extremity radiculopathy Plan: The patient has an L2 compression fracture of undetermined age. Degenerative disc disease with spinal stenosis lumbar spine Intractable low back pain With her significant increase in her back pain may be that this is a new compression fracture and she may be a candidate for vertebral kyphoplasty. This mainly based procedure with potentially provide stabilization and support at that L2 vertebral body if there is still healing within the vertebra itself. If the vertebra is fully healed then it is unlikely that kyphoplasty would give her any significant benefit. A new MRI would be very helpful in determining the chronicity of the fracture and would help lead and guide treatment options ranging from conservative to possibly surgical intervention. I'll order a new MRI for her. MRI would also help with determining the level of stenosis that she has at her lumbar spine and degenerative changes. She is known to have significant degeneration and radiculopathy. She understands that a kyphoplasty would not alleviate the radicular symptoms for her given her age and medical history is not likely that she would able be able to tolerate major surgery for her lumbar spine. She may be amenable for interventional pain management if there is no acute fracture at L2. Help determine this as well. We'll continue to follow her closely with you and will be able get further recommendations after the MRI is completed.
[2017-03-08] MEDS: CALCIUM CARB-VIT D 500MG-200UN 1 EACH TAB PO SCH (11:26)
[2017-03-08] MEDS ORDERED: traMADol 50 MG TAB PO PRN (11:36)
[2017-03-08] MEDS: KETOROLAC 30 MG/ML 1 ML VIAL IVP SCH ×3 (12:08→23:33)
--- NOTE | 2017-03-08 14:13 | P.HPIM ---
History of Present Illness H&P Date: 03/08/17 Chief Complaint: severe back pain This is 86 years old female patient of Dr. Curiel(seen first time last week ) switched from Dr. Willams. The past medical history of asthma or coronary artery disease, skin cancer, hyperlipidemia, hypertension, spinal stenosis, osteoporosis, urinary incontinence is then sent to [facility] ED for worsening pain in her lower back. Patient is known to orthopedic service and has been managed outpatient with norco with no relief. Patient has been to ER 3 times for similar reason and and is finally admitted due to excruciating pain and inability to move her right lower extremity. CT scan done last week suggested L2 compression fracture of uncertain age. Patient is seen by orthopedic surgeon and was recommended MRI of her back. Patient could go for kyphoplasty since conservative management has failed for her. Pain starts in the lower back and radiates to her right lower extremity with associated numbness in the thigh. Patient denies any chest pain, breathing problem, nausea , vomiting, abdominal pain, urine or stool incontinence. She has difficulty lifting her right lower extremity due to significant pain from radiculopathy. Vitals in the ER was stable with blood pressure 135/72 . Labs were unremarkable except for a calcium of 10.5. Patient was started on morphine with some relief of her pain along with Decadron 4 mg twice a day. Review of Systems Constitutional: Reports chronic pain, Reports fatigue, Denies fever, Denies night sweats, Denies poor appetite, Denies weight loss Eyes: denies diplopia, denies pain Ears: deny: decreased hearing Ears, nose, mouth and throat: Denies dysphagia, Denies headache, Denies mouth pain, Denies nose pain, Denies sinus pain, Denies voice changes Cardiovascular: Denies chest pain, Denies decreased exercise tolerance, Denies high blood pressure, Denies irregular heart beat, Denies lightheadedness, Denies orthopnea Respiratory: Denies congestion, Denies cough with sputum, Denies hemoptysis, Denies sleep apnea Gastrointestinal: Denies abdominal pain, Denies BRBPR, Denies heartburn, Denies nausea, Denies vomiting Genitourinary: Denies flank pain, Denies incomplete emptying, Denies nocturia, Denies urinary frequency Musculoskeletal: Reports fractures, Reports gait dysfunction, Reports limitation of motion, Reports low back pain, Reports muscle cramps, Reports muscle weakness, Reports shooting leg pain, Denies arm numbness/tingling, Denies frequent falls, Denies neck pain, Denies redness of joints Musculoskeletal: absent: ankle pain, ankle swelling, foot swelling, knee swelling Integumentary: Denies lesions, Denies rash Neurological: Reports motor disturbance, Reports paresthesias, Denies ataxia, Denies change in mentation, Denies confusion, Denies convulsions, Denies seizures Psychiatric: Denies change in appetite, Denies change in sleep habits, Denies hopelessness, Denies insomnia, Denies sadness/tearfulness Endocrine: Reports fatigue, Denies high blood sugars, Denies polyuria Hematologic/Lymphatic: Denies lymphadenopathy Allergic/Immunologic: Denies persistent infections Past Medical History Past Medical History: Asthma, Coronary Artery Disease (CAD), Cancer, Chest Pain / Angina, Hyperlipidemia, Hypertension, Myocardial Infarction (SD), Osteoarthritis (OA), Pneumonia Additional Past Medical History / Comment(s): spinal stenosis, osteoporosis, urinary incontinence , SD x 3, constipation, skin cancer removal on the left upper arm Last Myocardial Infarction Date:: 09/2015 History of Any Multi-Drug Resistant Organisms: None Reported Past Surgical History: Adenoidectomy, Cholecystectomy, Heart Catheterization, Joint Replacement, Orthopedic Surgery, Tonsillectomy Additional Past Surgical History / Comment(s): Athroscopic alessandro knees, Total joint replacement R knee, ORIF with rods to bilateral femurs, L leg vein stripping, colonoscopy, cataract removed left eye Past Anesthesia/Blood Transfusion Reactions: Postoperative Nausea & Vomiting ( PONV) Past Psychological History: No Psychological Hx Reported Additional Psychological History / Comment(s): . Smoking Status: Never smoker Past Alcohol Use History: None Reported Past Drug Use History: None Reported - Past Family History Father Family Medical History: Coronary Artery Disease (CAD), CVA/TIA, Myocardial Infarction (SD) Additional Family Medical History / Comment(s): Father at age 94 yrs. He also had arthiritis. Mother Family Medical History: No Reported History Additional Family Medical History / Comment(s): Mother was legally blind from DM. She had alot of back and stomach problems. Medications and Allergies Home Medications Medication Instructions Recorded Confirmed Type Aspirin 81 mg PO HS 06/12/14 03/07/17 History Atenolol [Tenormin] 25 mg PO BID 06/12/14 03/07/17 History Calcium Carbonate/Vitamin D3 1 tab PO DAILY 06/12/14 03/07/17 History [Calcium 600-Vit D3 400 Tablet] [place]-3 Fatty Acids/Fish Oil [Fish 1 cap PO DAILY 06/12/14 03/07/17 History Oil 1,000 mg Softgel] Sennosides [Senokot] 8.6 mg PO DAILY PRN 02/25/15 03/07/17 History diphenhydrAMINE [Benadryl] 25 mg PO DAILY PRN 02/25/15 03/07/17 History Vits A,C,E/Lutein/Minerals 1 tab PO DAILY 09/01/15 03/07/17 History [Ocuvite with Lutein Tablet] amLODIPine BESYLATE [Norvasc] 2.5 mg PO DAILY 09/01/15 03/07/17 History Propylene Glycol/Peg 400/Pf 1 drop BOTH EYES TID 09/02/15 03/07/17 History [Systane 0.3-0.4% Eye Drops] Atorvastatin [Lipitor] 80 mg PO HS #30 tab 09/03/15 03/07/17 Rx Levothyroxine Sodium [Synthroid] 50 mcg PO DAILY #30 tab 09/03/15 03/07/17 Rx Montelukast [Singulair] 10 mg PO HS #30 tab 09/03/15 03/07/17 Rx Docusate [Colace] 100 mg PO DAILY 04/24/16 03/07/17 History Furosemide [Lasix] 20 mg PO DAILY PRN 04/24/16 03/07/17 History Losartan Potassium [Cozaar] 25 mg PO DAILY 04/24/16 03/07/17 History Mometasone Inhalr 220 Mcg/Puff 2 puff INHALATION RT-DAILY PRN 04/24/16 03/07/17 History [Asmanex] Pantoprazole Sodium 40 mg PO DAILY 04/24/16 03/07/17 History Albuterol Sulfate [Proair Hfa] 2 puff INHALATION RT-Q6H PRN 02/12/17 03/07/17 History Isosorbide Mononitrate ER [Imdur] 60 mg PO BID 02/12/17 03/07/17 History Nabumetone 500 mg PO BID 02/12/17 03/07/17 History Nitroglycerin Sl Tabs [Nitrostat] 0.4 mg SUBLINGUAL Q5M PRN 02/12/17 03/07/17 History Polyethylene Glycol 3350 [Miralax] 17 gm PO DAILY PRN 02/12/17 03/07/17 History HYDROcodone/APAP 10-325MG [[place] 1 tab PO Q6H PRN #30 tab 02/28/17 03/07/17 Rx 10-325] traMADol HCL [Ultram] 50 - 100 mg PO Q8H PRN 03/07/17 03/07/17 History Allergies Allergy/AdvReac Type Severity Reaction Status Date / Time ciprofloxacin [From Cipro] Allergy Rash/Hives Verified 03/07/17 19:25 ciprofloxacin HCl Allergy Rash/Hives Verified 03/07/17 19:25 [From Cipro] clindamycin Allergy Rash/Hives Verified 03/07/17 19:25 fluticasone propionate Allergy Unknown Verified 03/07/17 19:25 [From Advair Diskus] ibuprofen [From Motrin] Allergy Unknown Verified 03/07/17 19:25 isosorbide [From Imdur] Allergy Unknown Verified 03/07/17 19:25 lisinopril Allergy Unknown Verified 03/07/17 19:25 naproxen [From Naprosyn] Allergy Unknown Verified 03/07/17 19:25 Penicillins Allergy Rash/Hives Verified 03/07/17 19:25 salmeterol xinafoate Allergy Unknown Verified 03/07/17 19:25 [From Advair Diskus] Sulfa (Sulfonamide Allergy Unknown Verified 03/07/17 19:25 Antibiotics) sulfamethoxazole Allergy Unknown Verified 03/07/17 19:25 [From Bactrim] trimethoprim [From Bactrim] Allergy Unknown Verified 03/07/17 19:25 kinafoate Allergy Unknown Uncoded 02/28/17 10:44 propionate Allergy Unknown Uncoded 02/28/17 10:44 salmetrol Allergy Unknown Uncoded 02/28/17 10:44 Physical Exam Vitals: Vital Signs Temp Pulse Pulse Resp BP BP Pulse Ox 03/08/17 07:00 99.8 F H 75 18 135/72 92 L 03/08/17 00:00 18 03/07/17 22:32 98.4 F 72 18 134/60 92 L 03/07/17 21:31 96 19 133/59 96 03/07/17 18:57 97.8 F 94 18 159/70 96 Intake and Output 03/07/17 03/08/17 03/08/17 22:59 06:59 14:59 Other: Voiding Method Bedside Commode # Voids 1 1 # Bowel Movements 1 Weight 85.729 kg - Constitutional General appearance: obese, severe distress - EENT Eyes: EOMI, PERRLA, no photophobia, no ptosis ENT: hearing grossly normal Ears: bilateral: normal - Neck Neck: no lymphadenopathy, normal ROM Carotids: bilateral: upstroke normal - Respiratory Respiratory: bilateral: CTA, negative: diminished, dullness, rales, rhonchi, wheezing - Cardiovascular Rhythm: regular Heart sounds: normal: S1, S2 Abnormal Heart Sounds: no systolic murmur, no rub, no S3 Gallop, no S4 Gallop ankle Peripheral Edema: bilateral: None - Gastrointestinal General gastrointestinal: no distended, normal bowel sounds, soft - Integumentary Integumentary: no calor, no rash - Neurologic Sensory deficit present on the medial side right lower extremity, decreased motor function on the right lower extremity, coordination normal with some shakiness of the left upper extremity on [id number] testing Neurologic: CNII-XII intact - Musculoskeletal Musculoskeletal: generalized weakness, right sided weakness - Psychiatric Psychiatric: A&O x's 3, appropriate affect History of dementia, difficulty recall Results CBC & Chem 7: 03/07/17 19:58 03/07/17 19:58 Labs: Abnormal Lab Results - Last 24 Hours (Table) 03/07/17 03/07/17 03/07/17 Range/Units 19:37 19:58 19:58 WBC 13.7 H (3.8-10.6) k/uL Neutrophils # 10.3 H (1.3-7.7) k/uL Sodium 135 L (137-145) mmol/L Glucose 150 H (74-99) mg/dL Calcium 10.5 H (8.4-10.2) mg/dL Ur Leukocyte Esterase Small H (Negative) Ur Squamous Epith Cells 5 H (0-4) /hpf Urine Bacteria Rare H (None) /hpf Urine Mucus Rare H (None) /hpf Thrombosis Risk Factor Assmnt - DVT/VTE Prophylaxis DVT/VTE Prophylaxis: Pharmacologic Prophylaxis ordered, Mechanical Prophylaxis ordered - Choose All That Apply Each Risk Factor Represents 3 Points: Age 75 years or older Thrombosis Risk Factor Assessment Total Risk Factor Score: 3 Thrombosis Risk Factor Assessment Level: Moderate Risk Assessment and Plan Plan: #1 L2 compression fracture with lumbar radiculopathy - orthopedic consulted, patient has failed outpatient management with [place] was and tramadol, continue IV morphine. Patient started on gabapentin 200 mg 3 times a day along with Toradol for pain relief along with Decadron 4 mg twice daily Orthopedic consult placed. MRI ordered. Plan for kyphoplasty in future #2 hypertension - continue amlodipine, atenolol, Imdur, losartan #3 coronary artery disease continue aspirin, atenolol, atorvastatin, Lasix, losartan at home dose. Crit currently stable no symptoms #4 hypothyroidism continues Synthyroid at home dose #5 asthma continue albuterol as needed, budesonide twice daily, montelukast , stable no wheezing on exam #6 constipation continue MiraLAX and senna #7 disposition- patient may need 1-2 inpatient night until pain is under control #8 CODE STATUS full code #9 GI prophylaxis with Protonix while patient is on steroids #10 DVT prophylaxis with heparin every 12
--- NOTE | 2017-03-08 15:10 | MR ---
EXAMINATION TYPE: MR lumbar spine wo con DATE OF EXAM: 03/08/2017 COMPARISON: CT lumbar spine dated 02/28/2017 HISTORY: Low back pain, r/o compression fracture TECHNIQUE: Multiplanar, multisequence images of the lumbar spine were acquired. Degenerative endplate changes are seen at the superior endplate of L2 and inferior endplate of L1 wit h extensive degenerative disc disease and a large Schmorl's node formation. The anterior endplate and posterior endplate vertebral body heights are maintained and therefore no compression deformity is s een. No bone marrow edema is present. No increased signal within the disc space to suggest discitis/o steomyelitis. There is grade 1 anterolisthesis of L3 on L4. T12-L1: Broad-based disc bulge with annular tear, facet arthropathy and ligamentum flavum buckling re sults in mild spinal canal stenosis and mild bilateral neural foraminal narrowing. L1-L2: As described above there is extensive degenerative disc disease with large Schmorl's node of t he superior endplate of L2. There is also facet arthropathy and ligamentum flavum buckling. This crea yoan severe spinal canal stenosis with narrowing of the spinal canal and both the anterior posterior a nd transverse dimensions. Anterior posterior dimension measures 5 mm. There is buckling of the nerve roots at this level within the thecal sac. Additionally the broad-based disc bulge and facet arthropa thy with ligamentum flavum buckling create severe left and moderate to severe right neural foraminal narrowing. L2-L3: There is a left lateral disc herniation extending into the left neural foramen creating modera te to severe left neural foraminal stenosis. Mild right neural foraminal narrowing as a result of fac et arthropathy and a broad-based disc bulge. Ligamentum flavum buckling contributes to moderate spina l canal stenosis. L3-L4: Severe spinal canal stenosis is seen with the spinal canal measuring 5 mm as a result of exten sive ligamentum flavum buckling, facet arthropathy and a large broad-based disc bulge as well as grad e 1 anterolisthesis of L3 on L4. Mild bilateral neural foraminal narrowing is seen as a result. L4-L5: Large broad-based disc bulge is seen in combination with ligamentum flavum buckling and facet arthropathy creating moderate left and mild to moderate right neural foraminal narrowing and moderate spinal canal stenosis. L5-S1: Normal disc appearance without desiccation. No herniation, protrusion or disc bulging. No ca nal stenosis is present. Foramina are patent bilaterally. Lumbar segments are intact. No paraspinal masses are identified. Conus medullaris has a normal appe arance. T2/T1 hyperintense vertebral body hemangiomas are seen of L3, L4, L5 and S1. Bone marrow sign al is slightly patchy although overall T1 signal is hyperintense in comparison to the discs. IMPRESSION: 1. No evidence of compression deformity. Mid vertebral body height loss of L2 as a result of extensiv e degenerative disc disease and a large Schmorl's node. Anterior and posterior superior endplates of L1 maintain normal height. 2. Extensive degenerative disc disease throughout the lumbar spine creating severe spinal canal steno sis at L1-L2 and L3-L4, moderate spinal canal stenosis at L2-L3 and L4-L5 and mild spinal canal steno sis at T12-L1. 3. Left lateral disc herniation at L2-L3 creating moderate to severe left neural foraminal stenosis. 4. Variable degrees of neural foraminal stenosis are present throughout the lumbar spine as described above. 5. Grade 1 anterolisthesis of L3 on L4, likely degenerative in nature.
[2017-03-08] MEDS: GABAPENTIN 100 MG CAP PO SCH ×2 (15:14→21:58)
[2017-03-08] MEDS: MORPHINE SULFATE 5 MG/ML SYRINGE IVP PRN ×2 (15:14→22:00)
[2017-03-08] MEDS: ASPIRIN 81 MG PO SCH (21:58)
[2017-03-08] MEDS: MONTELUKAST 10 MG TAB PO SCH (21:58)
[2017-03-08] MEDS: HEPARIN SODIUM,PORCINE 5,000 UNIT/ML 1 ML VIAL SQ SCH (21:58)
[2017-03-08] MEDS: ATORVASTATIN 80 MG TAB PO SCH (21:58)
[2017-03-09] MEDS: KETOROLAC 30 MG/ML 1 ML VIAL IVP SCH ×2 (06:14→12:15)
[2017-03-09] MEDS: LEVOTHYROXINE 50 MCG TAB PO SCH (06:14)
[2017-03-09] MEDS: BUDESONIDE 1 MG/2 ML NEBU INHALATION SCH ×2 (07:29→20:43)
[2017-03-09] MEDS: amLODIPine 2.5 MG TAB PO SCH (08:52)
[2017-03-09] MEDS: PANTOPRAZOLE 40 MG TABLET PO SCH (08:53)
[2017-03-09] MEDS: ATENOLOL 25 MG TAB PO SCH ×2 (08:53→20:29)
[2017-03-09] MEDS: DEXAMETHASONE 4 MG TAB PO SCH ×2 (08:54→20:30)
[2017-03-09] MEDS: DOCUSATE 100 MG CAP PO SCH (08:54)
[2017-03-09] MEDS: HEPARIN SODIUM,PORCINE 5,000 UNIT/ML 1 ML VIAL SQ SCH ×2 (08:55→20:31)
[2017-03-09] MEDS: GABAPENTIN 100 MG CAP PO SCH ×3 (08:55→22:10)
[2017-03-09] MEDS: LOSARTAN 25 MG TAB PO SCH (08:55)
[2017-03-09] MEDS: ISOSORBIDE MONONITRATE ER 60 MG TAB.ER.24H PO SCH ×2 (08:55→20:31)
[2017-03-09] MEDS: ARTIFICIAL TEARS-HYPROMELLOSE DROPS 15 ML BTL BOTH EYES SCH ×3 (08:56→22:09)
[2017-03-09] MEDS ORDERED: FAMOTIDINE 20 MG TAB PO SCH (09:00)
[2017-03-09] MEDS: CALCIUM CARB-VIT D 500MG-200UN 1 EACH TAB PO SCH (12:15)
[2017-03-09] MEDS ORDERED: oxyCODONE-APAP 10-325MG 1 EACH TAB PO PRN (12:52)
--- NOTE | 2017-03-09 15:18 | P.PN ---
Subjective Progress Note Date: 03/09/17 This is 86 years old female patient of Dr. Curiel(seen first time last week ) switched from Dr. Willams. The past medical history of asthma or coronary artery disease, skin cancer, hyperlipidemia, hypertension, spinal stenosis, osteoporosis, urinary incontinence is then sent to [facility] ED for worsening pain in her lower back. Patient is known to orthopedic service and has been managed outpatient with norco with no relief. Patient has been to ER 3 times for similar reason and and is finally admitted due to excruciating pain and inability to move her right lower extremity. CT scan done last week suggested L2 compression fracture of uncertain age. Patient is seen by orthopedic surgeon and was recommended MRI of her back. Patient could go for kyphoplasty since conservative management has failed for her. Pain starts in the lower back and radiates to her right lower extremity with associated numbness in the thigh. Patient denies any chest pain, breathing problem, nausea , vomiting, abdominal pain, urine or stool incontinence. She has difficulty lifting her right lower extremity due to significant pain from radiculopathy. Vitals in the ER was stable with blood pressure 135/72 . Labs were unremarkable except for a calcium of 10.5. Patient was started on morphine with some relief of her pain along with Decadron 4 mg twice a day. 03/09: Orthopedic spine does not have any plan for surgical intervention. They have added on a pain management consult however they are not available on Fridays over the weekend. We have made a few medication changes by discontinuing the IV Toradol and morphine and plan for patient to continue Percocet 10 one every 6 hours as needed, naproxen 250 mg twice daily, gabapentin 200 mg 3 times daily continue dexamethasone. Patient feels she is not ready for discharge today. Plan is to try this medication regime over the next 24 hours and discharge home tomorrow. MRI of the lumbar spine reveals no evidence of compression deformity. Extensive degenerative disc disease throughout the lumbar spine and severe spinal canal stenosis at L1-L2 and L3-L4, moderate spinal canal stenosis at L2- L3 and L4-5 and mild spinal canal stenosis at T12-L1. Left lateral disc herniation at L2-L3 creating moderate to severe left neural foraminal stenosis. Variable degrees of neural foraminal stenosis throughout the lumbar spine. Grade 1 anterolisthesis of L3 on L4 likely degenerative Objective - Vital Signs Vital signs: Vital Signs Temp 98.6 F 12/08/17 07:00 Pulse 65 03/09/17 07:00 Resp 16 03/09/17 07:00 BP 139/63 03/09/17 07:00 Pulse Ox 96 03/09/17 07:00 Intake & Output 03/08/17 03/09/17 03/09/17 18:59 06:59 18:59 Intake Total 800 Balance 800 Intake: IV 800 Sodium Chloride 0.9% 1, 800 000 ml @ 100 mls/hr IV . Q10H STA Rx#:[id number] Other: Voiding Method Toilet Toilet # Voids 1 2 # Bowel Movements 1 - Exam - Constitutional General appearance: obese, severe distress - EENT Eyes: EOMI, PERRLA, no photophobia, no ptosis ENT: hearing grossly normal Ears: bilateral: normal - Neck Neck: no lymphadenopathy, normal ROM Carotids: bilateral: upstroke normal - Respiratory Respiratory: bilateral: CTA, negative: diminished, dullness, rales, rhonchi, wheezing - Cardiovascular Rhythm: regular Heart sounds: normal: S1, S2 Abnormal Heart Sounds: no systolic murmur, no rub, no S3 Gallop, no S4 Gallop ankle Peripheral Edema: bilateral: None - Gastrointestinal General gastrointestinal: no distended, normal bowel sounds, soft - Integumentary Integumentary: no calor, no rash - Neurologic Sensory deficit present on the medial side right lower extremity, decreased motor function on the right lower extremity, coordination normal with some shakiness of the left upper extremity on [id number] testing Neurologic: CNII-XII intact - Musculoskeletal Musculoskeletal: generalized weakness, right sided weakness - Psychiatric Psychiatric: A&O x's 3, appropriate affect History of dementia, difficulty recall - Labs CBC & Chem 7: 03/07/17 19:58 03/07/17 19:58 Assessment and Plan Plan: #1 L2 compression fracture was ruled out on MRI. Degenerative disc disease with severe spinal canal stenosis, left lateral disc herniation at L2-L3 creating moderate to severe left neural foraminal stenosis with lumbar radiculopathy - orthopedic consulted, patient has failed outpatient management with [place] was and tramadol. Currently on Percocet 10 one every 6 hours as needed, naproxen 250 mg twice daily, gabapentin 200 mg 3 times daily continue dexamethasone. Orthopedic consult appreciated. Plan for kyphoplasty in future #2 hypertension - continue amlodipine, atenolol, Imdur, losartan #3 coronary artery disease continue aspirin, atenolol, atorvastatin, Lasix, losartan at home dose. Crit currently stable no symptoms #4 hypothyroidism continues Synthyroid at home dose #5 asthma continue albuterol as needed, budesonide twice daily, montelukast , stable no wheezing on exam #6 constipation continue MiraLAX and senna #7 disposition- patient may need 1-2 inpatient night until pain is under control #8 CODE STATUS full code #9 GI prophylaxis with Protonix while patient is on steroids #10 DVT prophylaxis with heparin every 12 Discharge plan: Home most likely with homecare Impression and plan of care have been directed as dictated by the signing physician. Gardenia Hairston nurse practitioner acting as scribe for signing physician.
[2017-03-09] MEDS: FAMOTIDINE 20 MG TAB PO SCH (16:31)
--- NOTE | 2017-03-09 17:56 | P.PN ---
Progress Note - Text Progress Note Date: 03/09/17 Patient is a very pleasant 86-year-old female who is well-known to our service who is seen for further evaluation for intractable low back pain. Since being seen and examined yesterday, an MRI of the lumbar spine has been performed. These images are reviewed prior to her examination today. She states her symptoms have significantly improved since her admission to the hospital and the administration of IV pain medications. She has been previously seen and examined outpatient setting. She was found to have compression fracture deformities at L1 and L2 of indeterminate age. At the bedside today, she states her pain has been adequately controlled. She is unsure how she will do in terms of pain control at the time of discharge without the IV pain medication she's currently receiving. She does continue to have chronic lower extremity radiculopathy symptoms with pain over the right anterior thigh radiating down to the anterior lower extremity. These symptoms are present in the left lower extremity as well but to a much lesser degree. Physical Exam: Patient is awake, alert, and oriented 3 Patient has good chest excursion with deep inspiration and expiration Abdomen is soft nontender Motor strength of the left lower extremity is 5/5 including dorsiflexion, plantar flexion, extensor hallucis longus, hip flexion, knee extension Motor strength of the right lower extremity is 5/5 including dorsiflexion, plantar flexion, extensor hallucis longus Motor strength of the right lower extremities the/5 including hip flexion Motor strength of the right lower extremity is 4/5 including knee extension Some difficulty with lifting the right lower extremity off the No significant pain with palpation over the thoracolumbar spine No evidence of erythema, bruising, lacerations, or obvious sign of infection of the lumbar spine No pain with internal or external rotation of the hips bilaterally Calves are soft nontender; no obvious sign of DVT Neurovascularly intact bilateral lower extremities MRI of the lumbar spine: No evidence of acute compression fracture deformity; L2 mid vertebral body height loss as a result of extensive degenerative disc disease and large Schmorl's node; anterior and posterior superior endplate of L1 maintain normal height; extensive degenerative disc disease throughout the lumbar spine creating severe spinal canal stenosis at L1-2 and L3-4; moderate spinal canal stenosis at L2-3 and L4-5; mild spinal canal stenosis at T12-L1; L3 -4 grade 1 spondylolisthesis; L2-3 left lateral disc herniation resulting in moderate to severe left neuroforaminal stenosis Assessment: Low back pain with lower extremity radiculopathy Right lower extremity weakness Lumbar spinal canal stenosis Degenerative disc disease L3-4 spondylolisthesis Plan: 1. After reviewing of imaging, physical examination of the patient, and further discussion with the patient and her family, we are not currently planning for acute surgical intervention regards to her lumbosacral spine. It does not appear she has evidence of an acute compression fracture deformity at L1 or L2. It does not seem likely that a kyphoplasty would provide significant relief of her symptoms. At this time, we will plan to consult with pain management for further evaluation and to discuss possible treatment options. From an orthopedic spine standpoint, patient is clear for discharge once cleared by all other medical providers. We will plan to have her follow-up in the utpatient setting for further evaluation in approximately 3 weeks. At discharge, she may participate in activities to tolerance. 2. Continue pain control as as needed as prescribed 3. Consultation has been placed with pain management to discuss possible treatment options including the possibility of injections 4. Medicine to continue following the patient 5. Following discharge, patient may follow up with Joseph Mccurdy PA-C or Dr. Janes Hernandes at [facility] in approximately 3 weeks for further evaluation 6. Patient has been discussed in detail with Dr. Janes Hernandes and he agrees with this plan
[2017-03-09] MEDS: ATORVASTATIN 80 MG TAB PO SCH (20:30)
[2017-03-09] MEDS: ASPIRIN 81 MG PO SCH (20:30)
[2017-03-09] MEDS: MONTELUKAST 10 MG TAB PO SCH (20:31)
[2017-03-09] MEDS: NAPROXEN 250 MG TAB PO SCH (22:10)
[2017-03-10] MEDS: LEVOTHYROXINE 50 MCG TAB PO SCH (06:03)
[2017-03-10] MEDS: BUDESONIDE 1 MG/2 ML NEBU INHALATION SCH ×2 (07:44→19:08)
[2017-03-10] MEDS: ALBUTEROL NEBULIZED 2.5 MG/3 ML INHALATION PRN (07:44)
[2017-03-10] MEDS: LOSARTAN 25 MG TAB PO SCH (08:05)
[2017-03-10] MEDS: DOCUSATE 100 MG CAP PO SCH (08:06)
[2017-03-10] MEDS: NAPROXEN 250 MG TAB PO SCH ×2 (08:06→20:19)
[2017-03-10] MEDS: ISOSORBIDE MONONITRATE ER 60 MG TAB.ER.24H PO SCH ×2 (08:06→20:19)
[2017-03-10] MEDS: FAMOTIDINE 20 MG TAB PO SCH (08:06)
[2017-03-10] MEDS: GABAPENTIN 100 MG CAP PO SCH ×3 (08:06→21:48)
[2017-03-10] MEDS: DEXAMETHASONE 4 MG TAB PO SCH ×2 (08:07→20:18)
[2017-03-10] MEDS: PANTOPRAZOLE 40 MG TABLET PO SCH (08:07)
[2017-03-10] MEDS: HEPARIN SODIUM,PORCINE 5,000 UNIT/ML 1 ML VIAL SQ SCH ×2 (08:07→20:18)
[2017-03-10] MEDS: amLODIPine 2.5 MG TAB PO SCH (08:07)
[2017-03-10] MEDS: ATENOLOL 25 MG TAB PO SCH ×2 (08:07→20:18)
[2017-03-10] MEDS: ARTIFICIAL TEARS-HYPROMELLOSE DROPS 15 ML BTL BOTH EYES SCH ×3 (08:07→21:50)
[2017-03-10] MEDS: CALCIUM CARB-VIT D 500MG-200UN 1 EACH TAB PO SCH (12:54)
--- NOTE | 2017-03-10 14:15 | P.PN ---
Subjective Progress Note Date: 03/10/17 Principal diagnosis: Intractable lower back pain, L2 compression fracture, hypertension, CAD, debility, asthma. This is 86 years old female patient of Dr. Curiel(seen first time last week ) switched from Dr. Willams. The past medical history of asthma or coronary artery disease, skin cancer, hyperlipidemia, hypertension, spinal stenosis, osteoporosis, urinary incontinence is then sent to [facility] ED for worsening pain in her lower back. Patient is known to orthopedic service and has been managed outpatient with norco with no relief. Patient has been to ER 3 times for similar reason and and is finally admitted due to excruciating pain and inability to move her right lower extremity. CT scan done last week suggested L2 compression fracture of uncertain age. Patient is seen by orthopedic surgeon and was recommended MRI of her back. Patient could go for kyphoplasty since conservative management has failed for her. Pain starts in the lower back and radiates to her right lower extremity with associated numbness in the thigh. Patient denies any chest pain, breathing problem, nausea , vomiting, abdominal pain, urine or stool incontinence. She has difficulty lifting her right lower extremity due to significant pain from radiculopathy. Vitals in the ER was stable with blood pressure 135/72 . Labs were unremarkable except for a calcium of 10.5. Patient was started on morphine with some relief of her pain along with Decadron 4 mg twice a day. 03/09: Orthopedic spine does not have any plan for surgical intervention. They have added on a pain management consult however they are not available on Fridays over the weekend. We have made a few medication changes by discontinuing the IV Toradol and morphine and plan for patient to continue Percocet 10 one every 6 hours as needed, naproxen 250 mg twice daily, gabapentin 200 mg 3 times daily continue dexamethasone. Patient feels she is not ready for discharge today. Plan is to try this medication regime over the next 24 hours and discharge home tomorrow. MRI of the lumbar spine reveals no evidence of compression deformity. Extensive degenerative disc disease throughout the lumbar spine and severe spinal canal stenosis at L1-L2 and L3-L4, moderate spinal canal stenosis at L2- L3 and L4-5 and mild spinal canal stenosis at T12-L1. Left lateral disc herniation at L2-L3 creating moderate to severe left neural foraminal stenosis. Variable degrees of neural foraminal stenosis throughout the lumbar spine. Grade 1 anterolisthesis of L3 on L4 likely degenerative 03/10/2017: Patient is feeling much better, her pain meds was switched to oral only she is doing gabapentin naproxen seen and hydrocodone only. Try to approve for patient hospital bed for when she goes home, she refuses going to rehab at this point. Also apparently discussed with Dr. Hernandes the possibility of kyphoplasty and decided for patient best interest to stay on conservative management and possible pain management. Objective - Vital Signs Vital signs: Vital Signs Temp 98.2 F 03/10/17 07:00 Pulse 60 03/10/17 08:00 Resp 18 03/10/17 08:00 BP 160/77 03/10/17 07:00 Pulse Ox 93 L 03/10/17 07:00 Intake & Output 03/09/17 03/10/17 03/10/17 18:59 06:59 18:59 Intake Total 400 360 Balance 400 360 Intake: Oral 400 360 Other: Voiding Method Toilet Toilet # Voids 2 1 3 - Constitutional General appearance: Present: cooperative, no acute distress. Absent: average body habitus, disheveled, mild distress, morbidly obese, obese, severe distress , thin - EENT Eyes: Present: abnormal pupil, normal appearance. Absent: anicteric sclerae, disc margins sharp, edentulous, EOMI, PERRLA, fundus normal, photophobia, dentition normal, poor dentition, ptosis, scleral icterus ENT: Present: hard of hearing, normal oropharynx. Absent: hearing grossly normal, NA/AT, other, pharyngeal erythema, thrush, tonsillar exudates, tonsillar swelling Ears: bilateral: normal - Neck Neck: Present: normal ROM. Absent: lymphadenopathy, other, rigidity, stridor, thyromegaly Carotids: bilateral: upstroke normal Thyroid: bilateral: normal size - Respiratory Respiratory: bilateral: CTA, diminished - Cardiovascular Rhythm: regular Heart sounds: normal: S1, S2 Abnormal Heart Sounds: Present: systolic murmur - Gastrointestinal General gastrointestinal: Present: decreased bowel sounds, distended, soft. Absent: absent bowel sounds, hepatomegaly, hyperactive bowel sounds, normal bowel sounds, organomegaly, rigid, scaphoid, splenomegaly, tenderness, umbilical hernia, ventral hernia - Integumentary Integumentary: Present: normal, pale. Absent: calor, cellulitis, cyanotic, decreased turgor, flushed, jaundiced, normal turgor, rash, ulcer - Neurologic Neurologic: Present: CNII-XII intact - Musculoskeletal Musculoskeletal: Present: gait normal, generalized weakness. Absent: strength equal bilaterally, right sided weakness, left sided weakness - Psychiatric Psychiatric: Present: A&O x's 3, appropriate affect - Labs CBC & Chem 7: 03/07/17 19:58 03/07/17 19:58 Assessment and Plan Plan: #1 L2 compression fracture was ruled out on MRI. Degenerative disc disease with severe spinal canal stenosis, left lateral disc herniation at L2-L3 creating moderate to severe left neural foraminal stenosis with lumbar radiculopathy - orthopedic consulted, patient has failed outpatient management with [place] was and tramadol. Currently on Percocet 10 one every 6 hours as needed, naproxen 250 mg twice daily, gabapentin 200 mg 3 times daily continue dexamethasone. Orthopedic consult appreciated. Probably patient refuses to go for kyphoplasty 100 to conservative management only. #2 intractable lower back pain: Patient will continue Naprosyn along with gabapentin and hydrocodone. Continue PTOT. Patient cannot reposition herself in bed will require hospital bed. #3 coronary artery disease continue aspirin, atenolol, atorvastatin, Lasix, losartan at home dose. Crit currently stable no symptoms #4 hypothyroidism continues Synthyroid at home dose #5 asthma continue albuterol as needed, budesonide twice daily, montelukast , stable no wheezing on exam #6 constipation continue MiraLAX and senna #7 hypertension - continue amlodipine, atenolol, Imdur, losartan #8 hyperglycemia: Continue Accu-Chek with sliding scales coverage. #9 GI prophylaxis with Protonix while patient is on steroids #10 DVT prophylaxis with heparin every 12 CODE STATUS full code disposition- patient may be going home tomorrow.
[2017-03-10] MEDS: ASPIRIN 81 MG PO SCH (20:17)
[2017-03-10] MEDS: ATORVASTATIN 80 MG TAB PO SCH (20:18)
[2017-03-10] MEDS: MONTELUKAST 10 MG TAB PO SCH (20:19)
[2017-03-10 22:00] VITALS: RESP 16
[2017-03-11] MEDS: LEVOTHYROXINE 50 MCG TAB PO SCH (06:13)
[2017-03-11] MEDS: FAMOTIDINE 20 MG TAB PO SCH (07:06)
[2017-03-11] MEDS: LOSARTAN 25 MG TAB PO SCH (07:06)
[2017-03-11] MEDS: ISOSORBIDE MONONITRATE ER 60 MG TAB.ER.24H PO SCH (07:06)
[2017-03-11] MEDS: NAPROXEN 250 MG TAB PO SCH (07:06)
[2017-03-11] MEDS: ATENOLOL 25 MG TAB PO SCH (07:08)
[2017-03-11] MEDS: GABAPENTIN 100 MG CAP PO SCH (07:08)
[2017-03-11] MEDS: PANTOPRAZOLE 40 MG TABLET PO SCH (07:08)
[2017-03-11] MEDS: amLODIPine 2.5 MG TAB PO SCH (07:08)
[2017-03-11] MEDS: ARTIFICIAL TEARS-HYPROMELLOSE DROPS 15 ML BTL BOTH EYES SCH (07:09)
[2017-03-11] MEDS: DEXAMETHASONE 4 MG TAB PO SCH (07:17)
[2017-03-11] MEDS: DOCUSATE 100 MG CAP PO SCH (07:18)
[2017-03-11] MEDS: HEPARIN SODIUM,PORCINE 5,000 UNIT/ML 1 ML VIAL SQ SCH (07:18)
[2017-03-11] MEDS: BUDESONIDE 1 MG/2 ML NEBU INHALATION SCH (08:03)
[2017-03-11 08:25] VITALS: BP 187/90; TEMP 97.5
[2017-03-11] MEDS ORDERED: amLODIPine 5 MG TAB PO STA (10:52)
[2017-03-11] MEDS: CALCIUM CARB-VIT D 500MG-200UN 1 EACH TAB PO SCH (11:27)
[2017-03-11] MEDS: ALBUTEROL NEBULIZED 2.5 MG/3 ML INHALATION PRN (11:45)
[2017-03-11 12:00] VITALS: PULSE 68
--- NOTE | 2017-03-11 12:54 | P.DS ---
Providers Date of admission: 03/07/17 20:49 Attending physician: Zane Hoang Consults: 03/07/17 20:49 Consult Physician Urgent Consulting Provider: Yady Hernandes Consult Reason/Comments: severe back pain Do you want consulting provider notified?: Already Contacted 03/09/17 09:25 Consult to Anesthesia Routine Consulting Provider: Anesthesia,Services Consult Reason/Comments: Low back pain with lower extremity radiculopathy; No evidence of Acute Fx Primary care physician: Syed Curiel Hospital Course: Intractable lower back pain, L2 compression fracture, hypertension, CAD, debility, asthma. This is 86 years old female patient of Dr. Curiel(seen first time last week ) switched from Dr. Willams. The past medical history of asthma or coronary artery disease, skin cancer, hyperlipidemia, hypertension, spinal stenosis, osteoporosis, urinary incontinence is then sent to [facility] ED for worsening pain in her lower back. Patient is known to orthopedic service and has been managed outpatient with norco with no relief. Patient has been to ER 3 times for similar reason and and is finally admitted due to excruciating pain and inability to move her right lower extremity. CT scan done last week suggested L2 compression fracture of uncertain age. Patient is seen by orthopedic surgeon and was recommended MRI of her back. Patient could go for kyphoplasty since conservative management has failed for her. Pain starts in the lower back and radiates to her right lower extremity with associated numbness in the thigh. Patient denies any chest pain, breathing problem, nausea , vomiting, abdominal pain, urine or stool incontinence. She has difficulty lifting her right lower extremity due to significant pain from radiculopathy. Vitals in the ER was stable with blood pressure 135/72 . Labs were unremarkable except for a calcium of 10.5. Patient was started on morphine with some relief of her pain along with Decadron 4 mg twice a day. 03/09: Orthopedic spine does not have any plan for surgical intervention. They have added on a pain management consult however they are not available on Fridays over the weekend. We have made a few medication changes by discontinuing the IV Toradol and morphine and plan for patient to continue Percocet 10 one every 6 hours as needed, naproxen 250 mg twice daily, gabapentin 200 mg 3 times daily continue dexamethasone. Patient feels she is not ready for discharge today. Plan is to try this medication regime over the next 24 hours and discharge home tomorrow. MRI of the lumbar spine reveals no evidence of compression deformity. Extensive degenerative disc disease throughout the lumbar spine and severe spinal canal stenosis at L1-L2 and L3-L4, moderate spinal canal stenosis at L2- L3 and L4-5 and mild spinal canal stenosis at T12-L1. Left lateral disc herniation at L2-L3 creating moderate to severe left neural foraminal stenosis. Variable degrees of neural foraminal stenosis throughout the lumbar spine. Grade 1 anterolisthesis of L3 on L4 likely degenerative 03/10/2017: Patient is feeling much better, her pain meds was switched to oral only she is doing gabapentin naproxen seen and hydrocodone only. Try to approve for patient hospital bed for when she goes home, she refuses going to rehab at this point. Also apparently discussed with Dr. Hernandes the possibility of kyphoplasty and decided for patient best interest to stay on conservative management and possible pain management. Patient is doing well tolerating her pain meds orally and she was to go home today to follow with Dr. geiger on her PCP as an outpatient and if needed arrangement for pain management or epidural can be done as an outpatient. Assessment and Plan Plan: #1 L2 compression fracture was ruled out on MRI. Degenerative disc disease with severe spinal canal stenosis, left lateral disc herniation at L2-L3 creating moderate to severe left neural foraminal stenosis with lumbar radiculopathy - orthopedic consulted, patient has failed outpatient management with [place] was and tramadol. Currently on Percocet 10 one every 6 hours as needed, naproxen 250 mg twice daily, gabapentin 200 mg 3 times daily continue dexamethasone. Orthopedic consult appreciated. Probably patient refuses to go for kyphoplasty 100 to conservative management only. #2 intractable lower back pain: Patient will continue Naprosyn along with gabapentin and hydrocodone. Continue PTOT. Patient cannot reposition herself in bed will require hospital bed. #3 coronary artery disease continue aspirin, atenolol, atorvastatin, Lasix, losartan at home dose. Crit currently stable no symptoms #4 hypothyroidism continues Synthyroid at home dose #5 asthma continue albuterol as needed, budesonide twice daily, montelukast , stable no wheezing on exam #6 constipation continue MiraLAX and senna #7 hypertension - continue amlodipine, atenolol, Imdur, losartan #8 hyperglycemia: Continue Accu-Chek with sliding scales coverage. #9 GI prophylaxis with Protonix while patient is on steroids Patient is doing very well tolerate her oral pain meds and mobility still significantly decrease but better with help. Patient Condition at Discharge: Good Plan - Discharge Summary New Discharge Prescriptions: New Acetaminophen Tab [Tylenol] 650 mg PO Q6HR PRN tab PRN Reason: Mild Pain Or Fever > 100.5 amLODIPine [Norvasc] 5 mg PO ONCE #30 tab Dexamethasone [Hexadrol] 4 mg PO BID #14 tab Famotidine [Pepcid] 20 mg PO DAILY #60 tab Gabapentin [Neurontin] 200 mg PO TID #90 cap Losartan [Cozaar] 50 mg PO DAILY #30 tab Naproxen [Naprosyn] 250 mg PO BID #60 tab oxyCODONE-APAP 10-325MG [Percocet 10-325 mg] 1 each PO Q6H PRN #30 tab PRN Reason: Moderate Pain Continue Aspirin 81 mg PO HS Atenolol [Tenormin] 25 mg PO BID [place]-3 Fatty Acids/Fish Oil [Fish Oil 1,000 mg Softgel] 1 cap PO DAILY Calcium Carbonate/Vitamin D3 [Calcium 600-Vit D3 400 Tablet] 1 tab PO DAILY diphenhydrAMINE [Benadryl] 25 mg PO DAILY PRN PRN Reason: allergies Sennosides [Senokot] 8.6 mg PO DAILY PRN PRN Reason: Constipation amLODIPine BESYLATE [Norvasc] 2.5 mg PO DAILY Vits A,C,E/Lutein/Minerals [Ocuvite with Lutein Tablet] 1 tab PO DAILY Propylene Glycol/Peg 400/Pf [Systane 0.3-0.4% Eye Drops] 1 drop BOTH EYES TID Atorvastatin [Lipitor] 80 mg PO HS #30 tab Levothyroxine Sodium [Synthroid] 50 mcg PO DAILY #30 tab Montelukast [Singulair] 10 mg PO HS #30 tab Pantoprazole Sodium 40 mg PO DAILY Furosemide [Lasix] 20 mg PO DAILY PRN PRN Reason: Edema Docusate [Colace] 100 mg PO DAILY Mometasone Inhalr 220 Mcg/Puff [Asmanex] 2 puff INHALATION RT-DAILY PRN PRN Reason: Shortness Of Breath Isosorbide Mononitrate ER [Imdur] 60 mg PO BID Polyethylene Glycol 3350 [Miralax] 17 gm PO DAILY PRN PRN Reason: Constipation Nitroglycerin Sl Tabs [Nitrostat] 0.4 mg SUBLINGUAL Q5M PRN PRN Reason: Chest Pain Albuterol Sulfate [Proair Hfa] 2 puff INHALATION RT-Q6H PRN PRN Reason: Shortness Of Breath Nabumetone 500 mg PO BID HYDROcodone/APAP 10-325MG [[place] 10-325] 1 tab PO Q6H PRN #30 tab PRN Reason: pain traMADol HCL [Ultram] 50 - 100 mg PO Q8H PRN PRN Reason: Pain Discontinued Losartan Potassium [Cozaar] 25 mg PO DAILY Discharge Medication List Aspirin 81 mg PO HS 06/12/14 [History] Atenolol [Tenormin] 25 mg PO BID 06/12/14 [History] Calcium Carbonate/Vitamin D3 [Calcium 600-Vit D3 400 Tablet] 1 tab PO DAILY [History] [place]-3 Fatty Acids/Fish Oil [Fish Oil 1,000 mg Softgel] 1 cap PO DAILY [History] Sennosides [Senokot] 8.6 mg PO DAILY PRN 02/25/15 [History] diphenhydrAMINE [Benadryl] 25 mg PO DAILY PRN 02/25/15 [History] Vits A,C,E/Lutein/Minerals [Ocuvite with Lutein Tablet] 1 tab PO DAILY 09/01/15 [History] amLODIPine BESYLATE [Norvasc] 2.5 mg PO DAILY 09/01/15 [History] Propylene Glycol/Peg 400/Pf [Systane 0.3-0.4% Eye Drops] 1 drop BOTH EYES TID [History] Atorvastatin [Lipitor] 80 mg PO HS #30 tab 09/03/15 [Rx] Levothyroxine Sodium [Synthroid] 50 mcg PO DAILY #30 tab 09/03/15 [Rx] Montelukast [Singulair] 10 mg PO HS #30 tab 09/03/15 [Rx] Docusate [Colace] 100 mg PO DAILY 04/24/16 [History] Furosemide [Lasix] 20 mg PO DAILY PRN 04/24/16 [History] Mometasone Inhalr 220 Mcg/Puff [Asmanex] 2 puff INHALATION RT-DAILY PRN [History] Pantoprazole Sodium 40 mg PO DAILY 04/24/16 [History] Albuterol Sulfate [Proair Hfa] 2 puff INHALATION RT-Q6H PRN 02/12/17 [History] Isosorbide Mononitrate ER [Imdur] 60 mg PO BID 02/12/17 [History] Nabumetone 500 mg PO BID 02/12/17 [History] Nitroglycerin Sl Tabs [Nitrostat] 0.4 mg SUBLINGUAL Q5M PRN 02/12/17 [History] Polyethylene Glycol 3350 [Miralax] 17 gm PO DAILY PRN 02/12/17 [History] HYDROcodone/APAP 10-325MG [[place] 10-325] 1 tab PO Q6H PRN #30 tab 02/28/17 [Rx] traMADol HCL [Ultram] 50 - 100 mg PO Q8H PRN 03/07/17 [History] Acetaminophen Tab [Tylenol] 650 mg PO Q6HR PRN tab 03/11/17 [Rx] Dexamethasone [Hexadrol] 4 mg PO BID #14 tab 03/11/17 [Rx] Famotidine [Pepcid] 20 mg PO DAILY #60 tab 03/11/17 [Rx] Gabapentin [Neurontin] 200 mg PO TID #90 cap 03/11/17 [Rx] Losartan [Cozaar] 50 mg PO DAILY #30 tab 03/11/17 [Rx] Naproxen [Naprosyn] 250 mg PO BID #60 tab 03/11/17 [Rx] amLODIPine [Norvasc] 5 mg PO ONCE #30 tab 03/11/17 [Rx] oxyCODONE-APAP 10-325MG [Percocet 10-325 mg] 1 each PO Q6H PRN #30 tab 03/11/17 [Rx] Follow up Appointment(s)/Referral(s): Syed Curiel MD [Primary Care Provider] - 1 Week Yady Hernandes DO [Doctor of Osteopathic Medicine] - 3 Weeks Patient Instructions/Handouts: Famotidine (By mouth), Naproxen (By mouth), Oxycodone/Acetaminophen (By mouth), Gabapentin (By mouth), Amlodipine (By mouth) , Losartan (By mouth), Dexamethasone (By mouth), Back Pain (GEN) Activity/Diet/Wound Care/Special Instructions: schedule appointments on Sunday Discharge Disposition: HOME WITH HOME HEALTH SERVICES
[2017-03-12] MEDS ORDERED: LOSARTAN 50 MG TAB PO SCH (09:00)
== END 2017-03-11 16:13 | disposition home health service (06) ==
LOC: EC 18:51 → 5MS5E 20:49
PROVIDERS: ADMIT Internal Medicine Geriatric Medicine; ATTEND Internal Medicine Geriatric Medicine
DX: M51.16 Intervertebral disc disorders with radiculopathy, lumbar region (principal); I25.2 Old myocardial infarction; J45.909 Unspecified asthma, uncomplicated; I25.10 Atherosclerotic heart disease of native coronary artery without angina pectoris; I10 Essential (primary) hypertension; E78.5 Hyperlipidemia, unspecified; M19.90 Unspecified osteoarthritis, unspecified site; M48.56XA Collapsed vertebra, not elsewhere classified, lumbar region, initial encounter for fracture; M48.061 Spinal stenosis, lumbar region without neurogenic claudication; G89.29 Other chronic pain; R32 Unspecified urinary incontinence; E03.9 Hypothyroidism, unspecified; K59.00 Constipation, unspecified; M43.16 Spondylolisthesis, lumbar region; R73.9 Hyperglycemia, unspecified; Z79.82 Long term (current) use of aspirin; Z82.49 Family history of ischemic heart disease and other diseases of the circulatory system; Z79.899 Other long term (current) drug therapy; Z79.1 Long term (current) use of non-steroidal anti-inflammatories (NSAID); Z88.6 Allergy status to analgesic agent; Z88.1 Allergy status to other antibiotic agents; Z88.3 Allergy status to other anti-infective agents; Z88.0 Allergy status to penicillin; Z88.2 Allergy status to sulfonamides; Z88.8 Allergy status to other drugs, medicaments and biological substances; Z85.828 Personal history of other malignant neoplasm of skin
CPT/HCPCS: 96376 ×3; 96361 ×3; 96372 ×5; 96375; 96374; 99285; 36415; 94640 ×2; 97116; 97162; 80053; 85025; 81001; 72148; G0378 ×5; J8540 ×5; J1644 ×4; J1885 ×2; J2274 ×2

== ENCOUNTER 2017-04-07 12:56 | Emergency (ER) | payer MEDICARE, OTHER ==
[2017-04-07 13:03] VITALS: RESP 18
--- NOTE | 2017-04-07 13:41 | ED ---
General Adult HPI - General Chief complaint: Abdominal Pain Stated complaint: Constipated Time Seen by Provider: 04/07/17 13:11 Source: patient, family, RN notes reviewed, old records reviewed Mode of arrival: wheelchair Limitations: no limitations - History of Present Illness Initial comments: Chief complaint and history of present illness an 86-year-old female here because of constipation. The patient reports she was here stomach ago with the same problem, rectal impaction. She had a large bowel movement after enema was administered here. Unfortunately she continues to use her Columbia for chronic back pain. No nausea no vomiting no fever no abdominal pain - Related Data Home Medications Medication Instructions Recorded Confirmed Atenolol [Tenormin] 25 mg PO BID 06/12/14 04/07/17 [place]-3 Fatty Acids/Fish Oil [Fish 2 cap PO DAILY 06/12/14 04/07/17 Oil 1,000 mg Softgel] Sennosides [Senokot] 17.2 mg PO BID PRN 02/25/15 04/07/17 Vits A,C,E/Lutein/Minerals 1 tab PO DAILY 09/01/15 04/07/17 [Ocuvite with Lutein Tablet] amLODIPine BESYLATE [Norvasc] 2.5 mg PO DAILY 09/01/15 03/13/17 Propylene Glycol/Peg 400/Pf 1 drop BOTH EYES TID 09/02/15 04/07/17 [Systane 0.3-0.4% Eye Drops] Docusate [Colace] 100 mg PO BID 04/24/16 04/07/17 Furosemide [Lasix] 20 mg PO DAILY PRN 04/24/16 04/07/17 Mometasone Inhalr 220 Mcg/Puff 2 puff INHALATION RT-BID PRN 04/24/16 04/07/17 [Asmanex] Pantoprazole Sodium 40 mg PO AC-BRKFST 04/24/16 04/07/17 Albuterol Sulfate [Proair Hfa] 2 puff INHALATION RT-Q6H PRN 02/12/17 04/07/17 Isosorbide Mononitrate ER [Imdur] 60 mg PO BID 02/12/17 04/07/17 Nabumetone 500 mg PO BID 02/12/17 04/07/17 Nitroglycerin Sl Tabs [Nitrostat] 0.4 mg SUBLINGUAL Q5M PRN 02/12/17 04/07/17 Aspirin EC [Ecotrin Low Dose] 81 mg PO DAILY 04/07/17 04/07/17 Atorvastatin [Lipitor] 80 mg PO DAILY 04/07/17 04/07/17 Calcium 500mg/Vit D3 400iu 1 tab PO DAILY 04/07/17 04/07/17 HYDROcodone/APAP 10-325MG [[place] 1 tab PO QID PRN 04/07/17 04/07/17 10-325] Symproic 0.2mg 0.2 mg PO DAILY@0600 04/07/17 Previous Rx's Medication Instructions Recorded Levothyroxine Sodium [Synthroid] 50 mcg PO DAILY #30 tab 09/03/15 Montelukast [Singulair] 10 mg PO HS #30 tab 09/03/15 Dexamethasone [Hexadrol] 4 mg PO BID #14 tab 03/11/17 Gabapentin [Neurontin] 200 mg PO TID #90 cap 03/11/17 Losartan [Cozaar] 50 mg PO DAILY #30 tab 03/11/17 Nystatin 100,000 Unit/gm Oint 1 applic TOPICAL TID #22 gm 04/07/17 [Mycostatin Oint] Allergies Allergy/AdvReac Type Severity Reaction Status Date / Time ciprofloxacin [From Cipro] Allergy Rash/Hives Verified 04/07/17 13:12 ciprofloxacin HCl Allergy Rash/Hives Verified 04/07/17 13:12 [From Cipro] clindamycin Allergy Rash/Hives Verified 04/07/17 13:12 fluticasone propionate Allergy Unknown Verified 04/07/17 13:12 [From Advair Diskus] ibuprofen [From Motrin] Allergy Unknown Verified 04/07/17 13:12 isosorbide [From Imdur] Allergy Unknown Verified 04/07/17 13:12 lisinopril Allergy Unknown Verified 04/07/17 13:12 naproxen [From Naprosyn] Allergy Unknown Verified 04/07/17 13:12 Penicillins Allergy Rash/Hives Verified 04/07/17 13:12 salmeterol xinafoate Allergy Unknown Verified 04/07/17 13:12 [From Advair Diskus] Sulfa (Sulfonamide Allergy Unknown Verified 04/07/17 13:12 Antibiotics) sulfamethoxazole Allergy Unknown Verified 04/07/17 13:12 [From Bactrim] trimethoprim [From Bactrim] Allergy Unknown Verified 04/07/17 13:12 kinafoate Allergy Unknown Uncoded 04/07/17 13:03 propionate Allergy Unknown Uncoded 04/07/17 13:03 salmetrol Allergy Unknown Uncoded 04/07/17 13:03 Review of Systems ROS Statement: Those systems with pertinent positive or pertinent negative responses have been documented in the HPI. review of systems. Patient denies headache or visual acuity changes no chest pain or shortness of breath she reports she has not had a bowel movement for 6 days until this morning when she had just a small amount. She continues to eat. No diarrhea. Patient denies any neuro deficits. All systems were reviewed. Past medical problems chronic back pain for which she takes Columbia. Also history of asthma, coronary disease, Angina and [place], she had a cardiac cath but no stenting. Patient is also had hyperlipidemia, hypertension,osteoarthritis, pneumonia spinal stenosis. surgeries include tonsils and adenoids, gallbladder, heart cath no stent, right knee replacement, bilateral knee arthroscopies. Family history no cancers. Patient has ALLERGIES to Cipro, clindamycin, fluticasone, ibuprofen, isosorbide, lisinopril, naproxen. Patient reports these cause a rash on her face. Nonsmoker nondrinker. ROS Other: All systems not noted in ROS Statement are negative. Past Medical History Past Medical History: Asthma, Coronary Artery Disease (CAD), Cancer, Chest Pain / Angina, Hyperlipidemia, Hypertension, Myocardial Infarction (VT), Osteoarthritis (OA), Pneumonia Additional Past Medical History / Comment(s): spinal stenosis, osteoporosis, urinary incontinence , [place] x 3, constipation, skin cancer removal on the left upper arm Last Myocardial Infarction Date:: 09/2015 History of Any Multi-Drug Resistant Organisms: None Reported Past Surgical History: Adenoidectomy, Cholecystectomy, Heart Catheterization, Joint Replacement, Orthopedic Surgery, Tonsillectomy Additional Past Surgical History / Comment(s): Athroscopic alessandro knees, Total joint replacement R knee, ORIF with rods to bilateral femurs, L leg vein stripping, colonoscopy, cataract removed left eye Past Anesthesia/Blood Transfusion Reactions: Postoperative Nausea & Vomiting ( PONV) Past Psychological History: No Psychological Hx Reported Smoking Status: Never smoker Past Alcohol Use History: None Reported Past Drug Use History: None Reported - Past Family History Father Family Medical History: Coronary Artery Disease (CAD), CVA/TIA, Myocardial Infarction (VT) Additional Family Medical History / Comment(s): Father at age 94 yrs. He also had arthiritis. Mother Family Medical History: No Reported History Additional Family Medical History / Comment(s): Mother was legally blind from DM. She had alot of back and stomach problems. General Exam - General Exam Comments Initial Comments: General: The patient is awake and alert, here because she has not had a significant bowel movement for 6 days. Vital signs show temperature 98.1, pulse 68 respiratory rate 18 pulse ox 97 on room air. Eye: Pupils are equal, round and reactive to light, extra-ocular movements are intact ; there is normal conjunctiva bilaterally. No signs of icterus. Ears, nose, mouth and throat: There are moist mucous membranes and no oral lesions. Neck: The neck is supple, there is no tenderness . Cardiovascular: There is a regular rate and rhythm. No murmur, rub or gallop is appreciated. Respiratory: Lungs are clear to auscultation, respirations are non-labored, breath sounds are equal. No wheezes, stridor, rales, or rhonchi. Gastrointestinal: nontender with palpation of the abdomen no rebound or referred pain normal active bowel sounds. She states she's not had a bowel movement for 6 days. Needed enema 3 weeks ago to assist her bowel movement. Back: chronic back pain, history of osteoarthritis, L1 compression fracture from osteoporosis. Also has spinal stenosis. Musculoskeletal: chronic back pain but no foot drop or difficulty withreleasing urine or stool. Takes Columbia for pain. 6 cm incision left deltoid region. Patient states after having had an injection in that area she developed localized cancer. cancer type not known by the patient. Neurological: no complaint of or any neuro deficits noted. Skin: Skin is warm and dry and no rashes or lesions are noted. Limitations: no limitations Course Vital Signs 04/07/17 12:59 Temperature 98.1 F Pulse Rate 68 Respiratory 18 Rate Blood Pressure 126/60 O2 Sat by Pulse 97 Oximetry Medical Decision Making - Medical Decision Making Medical decision making; this is a 6-year-old female here with constipation problems. This is recurrent as the patient is taking Columbia for osteoporosis and L1 compression fracture. No new injuries. The patient was examined with the assistance of the nurse as noted in the physical examination the patient was also given an enema and just prior to that she received topical viscous lidocaine in the area of the rectum which helped significantly. The patient will be prescribed Mycostatin to be used in this general area she's developed an intertrigo. In between she is to use a thick emollient such as Desitin. Advised to alternate between natural foods to keep her stool soft, Colace, and [id number] preparations for bowel movements. Follow-up with family physician. Advised to decrease how often she takes Columbia as this is most likely the cause of her recurrent constipation problems. Patient states she is feeling much better rated go home Disposition Clinical Impression: Constipation due to opioid therapy Disposition: HOME SELF-CARE Condition: Fair Instructions: Constipation (ED), High Fiber Diet (ED), Fleet Enema (ED) Additional Instructions: Apply Mycostatin alternating with preparation H and thick Desitin. Prescriptions: Nystatin 100,000 Unit/gm Oint [Mycostatin Oint] 1 applic TOPICAL TID #22 gm Referrals: Syed Curiel MD [Primary Care Provider] - 1-2 days Time of Disposition: 15:41
--- NOTE | 2017-04-07 13:55 | XR ---
EXAMINATION TYPE: XR abdomen 2V , ONE VIEW DATE OF EXAM ORDERED: 04/07/2017 HISTORY: constipation. COMPARISON: Previous study dated 03/13/2017. FINDINGS: The lung bases are clear. There is been a previous cholecystectomy. There has been intramedullary adan fixation and dynamic hip pinning on the right. The abdominal gas pattern is within normal limits. There is no evidence of obstruction or free air. N o significant stool load is identified. IMPRESSION: NO ACUTE INTRA-ABDOMINAL ABNORMALITY.
[2017-04-07] MEDS ORDERED: LIDOCAINE 2% GEL 30 ML TUBE TOPICAL ONE (14:35)
[2017-04-07] MEDS ORDERED: HYDROmorphone 1 MG/ML 1 ML SYRINGE IM STA (14:45)
[2017-04-07 16:03] VITALS: BP 123/66; PULSE 57; TEMP 98.4
== END 2017-04-07 16:01 | disposition home or self-care (01) ==
LOC: EC 12:56
DX: K59.03 Drug induced constipation (principal); T40.2X5A Adverse effect of other opioids, initial encounter; M81.0 Age-related osteoporosis without current pathological fracture; M48.56XA Collapsed vertebra, not elsewhere classified, lumbar region, initial encounter for fracture; E78.5 Hyperlipidemia, unspecified; I10 Essential (primary) hypertension; I25.10 Atherosclerotic heart disease of native coronary artery without angina pectoris; M19.90 Unspecified osteoarthritis, unspecified site; I25.2 Old myocardial infarction; Z79.82 Long term (current) use of aspirin; Z87.891 Personal history of nicotine dependence; Z79.899 Other long term (current) drug therapy; Z88.0 Allergy status to penicillin; Z88.1 Allergy status to other antibiotic agents; Z88.6 Allergy status to analgesic agent; Z88.8 Allergy status to other drugs, medicaments and biological substances; Z86.79 Personal history of other diseases of the circulatory system; Z85.828 Personal history of other malignant neoplasm of skin; Z90.49 Acquired absence of other specified parts of digestive tract; Z82.61 Family history of arthritis; Z98.890 Other specified postprocedural states
CPT/HCPCS: 74019; 99284; 96372; J1170

== ENCOUNTER 2017-04-14 13:59 | Emergency (ER) | payer MEDICARE, OTHER ==
[2017-04-14] MEDS ORDERED: MAGNESIUM CITRATE 296 ML BOTTLE PO ONE (14:50)
[2017-04-14] MEDS ORDERED: NA PHOS,M-B/NA PHOS,DI-BA 133 ML ENEMA RECTAL STA (14:54)
--- NOTE | 2017-04-14 14:56 | ED ---
General Adult HPI - General Chief complaint: Abdominal Pain Stated complaint: Constipation Time Seen by Provider: 04/14/17 14:41 Source: patient, family, RN notes reviewed, old records reviewed Mode of arrival: wheelchair Limitations: no limitations - History of Present Illness Initial comments: 87-year-old female with complaint of constipation. Patient has been dealing with constipation on and off for the past one month. She's been emergency department 2 times previous to today and had disimpaction. Patient states she has had only very small hard bowel movements since her last disimpaction. Denies any nausea vomiting. Patient does have chronic back pain for which she takes opiate pain medication. She states she has been taking the prescribed laxatives with minimal relief. - Related Data Home Medications Medication Instructions Recorded Confirmed Atenolol [Tenormin] 25 mg PO BID 06/12/14 04/14/17 [place]-3 Fatty Acids/Fish Oil [Fish 2 cap PO DAILY 06/12/14 04/14/17 Oil 1,000 mg Softgel] Sennosides [Senokot] 17.2 mg PO BID PRN 02/25/15 04/14/17 Vits A,C,E/Lutein/Minerals 1 tab PO DAILY 09/01/15 04/14/17 [Ocuvite with Lutein Tablet] amLODIPine BESYLATE [Norvasc] 2.5 mg PO DAILY 09/01/15 04/14/17 Propylene Glycol/Peg 400/Pf 1 drop BOTH EYES TID 09/02/15 04/14/17 [Systane 0.3-0.4% Eye Drops] Docusate [Colace] 100 mg PO BID 04/24/16 04/14/17 Furosemide [Lasix] 20 mg PO DAILY PRN 04/24/16 04/14/17 Mometasone Inhalr 220 Mcg/Puff 2 puff INHALATION RT-BID PRN 04/24/16 04/14/17 [Asmanex] Pantoprazole Sodium 40 mg PO AC-BRKFST 04/24/16 04/14/17 Albuterol Sulfate [Proair Hfa] 2 puff INHALATION RT-Q6H PRN 02/12/17 04/14/17 Isosorbide Mononitrate ER [Imdur] 60 mg PO BID 02/12/17 04/14/17 Nabumetone 500 mg PO BID 02/12/17 04/14/17 Nitroglycerin Sl Tabs [Nitrostat] 0.4 mg SUBLINGUAL Q5M PRN 02/12/17 04/14/17 Aspirin EC [Ecotrin Low Dose] 81 mg PO DAILY 04/07/17 04/14/17 Atorvastatin [Lipitor] 80 mg PO DAILY 04/07/17 04/14/17 Calcium 500mg/Vit D3 400iu 1 tab PO DAILY 04/07/17 04/14/17 HYDROcodone/APAP 10-325MG [[place] 1 tab PO QID PRN 04/07/17 04/14/17 10-325] Symproic 0.2mg 0.2 mg PO DAILY@0600 04/07/17 04/14/17 Previous Rx's Medication Instructions Recorded Levothyroxine Sodium [Synthroid] 50 mcg PO DAILY #30 tab 09/03/15 Montelukast [Singulair] 10 mg PO HS #30 tab 09/03/15 Dexamethasone [Hexadrol] 4 mg PO BID #14 tab 03/11/17 Gabapentin [Neurontin] 200 mg PO TID #90 cap 03/11/17 Losartan [Cozaar] 50 mg PO DAILY #30 tab 03/11/17 Nystatin 100,000 Unit/gm Oint 1 applic TOPICAL TID #22 gm 04/07/17 [Mycostatin Oint] Lactulose 10 gm PO DAILY #450 ml 04/14/17 Allergies Allergy/AdvReac Type Severity Reaction Status Date / Time ciprofloxacin [From Cipro] Allergy Rash/Hives Verified 04/14/17 14:38 ciprofloxacin HCl Allergy Rash/Hives Verified 04/14/17 14:38 [From Cipro] clindamycin Allergy Rash/Hives Verified 04/14/17 14:38 fluticasone propionate Allergy Unknown Verified 04/14/17 14:38 [From Advair Diskus] ibuprofen [From Motrin] Allergy Unknown Verified 04/14/17 14:38 isosorbide [From Imdur] Allergy Unknown Verified 04/14/17 14:38 lisinopril Allergy Unknown Verified 04/14/17 14:38 naproxen [From Naprosyn] Allergy Unknown Verified 04/14/17 14:38 Penicillins Allergy Rash/Hives Verified 04/14/17 14:38 salmeterol xinafoate Allergy Unknown Verified 04/14/17 14:38 [From Advair Diskus] Sulfa (Sulfonamide Allergy Unknown Verified 04/14/17 14:38 Antibiotics) sulfamethoxazole Allergy Unknown Verified 04/14/17 14:38 [From Bactrim] trimethoprim [From Bactrim] Allergy Unknown Verified 04/14/17 14:38 kinafoate Allergy Unknown Uncoded 04/14/17 14:18 propionate Allergy Unknown Uncoded 04/14/17 14:18 salmetrol Allergy Unknown Uncoded 04/14/17 14:18 Review of Systems ROS Statement: Those systems with pertinent positive or pertinent negative responses have been documented in the HPI. ROS Other: All systems not noted in ROS Statement are negative. Past Medical History Past Medical History: Asthma, Coronary Artery Disease (CAD), Cancer, Chest Pain / Angina, Hyperlipidemia, Hypertension, Myocardial Infarction ([place]), Osteoarthritis (OA), Pneumonia Additional Past Medical History / Comment(s): spinal stenosis, osteoporosis, urinary incontinence , [place] x 3, constipation, skin cancer removal on the left upper arm Last Myocardial Infarction Date:: 09/2015 History of Any Multi-Drug Resistant Organisms: None Reported Past Surgical History: Adenoidectomy, Cholecystectomy, Heart Catheterization, Joint Replacement, Orthopedic Surgery, Tonsillectomy Additional Past Surgical History / Comment(s): Athroscopic alessandro knees, Total joint replacement R knee, ORIF with rods to bilateral femurs, L leg vein stripping, colonoscopy, cataract removed left eye Past Anesthesia/Blood Transfusion Reactions: Postoperative Nausea & Vomiting ( PONV) Past Psychological History: No Psychological Hx Reported Smoking Status: Never smoker Past Alcohol Use History: None Reported Past Drug Use History: None Reported - Past Family History Father Family Medical History: Coronary Artery Disease (CAD), CVA/TIA, Myocardial Infarction (NM) Additional Family Medical History / Comment(s): Father at age 94 yrs. He also had arthiritis. Mother Family Medical History: No Reported History Additional Family Medical History / Comment(s): Mother was legally blind from DM. She had alot of back and stomach problems. General Exam Limitations: no limitations General appearance: alert, in no apparent distress Head exam: Present: atraumatic, normocephalic Eye exam: Present: normal appearance, PERRL, EOMI ENT exam: Present: normal exam, mucous membranes dry Neck exam: Absent: normal inspection, tenderness Respiratory exam: Present: normal lung sounds bilaterally, respiratory distress Cardiovascular Exam: Present: regular rate, normal rhythm GI/Abdominal exam: Present: soft, distended. Absent: tenderness, guarding Rectal exam: Present: fecal impaction Extremities exam: Present: normal inspection, full ROM, normal capillary refill. Absent: pedal edema Neurological exam: Present: alert, oriented X3, CN II-XII intact. Absent: motor sensory deficit Psychiatric exam: Present: normal affect, normal mood Skin exam: Present: warm, dry, intact. Absent: cyanosis, diaphoretic Course Vital Signs 04/14/17 14:18 Temperature 98.9 F Pulse Rate 71 Respiratory 20 Rate Blood Pressure 133/60 O2 Sat by Pulse 95 Oximetry Medical Decision Making - Medical Decision Making 87-year-old female with chronic constipation. Patient has distended abdomen, nontender, non acute. X-ray shows large amount of stool in the rectum. On exam there is fecal impaction, she is manually disimpacted given a Fleet enema. She does have a large bowel movement in the emergency department. She will be prescribed lactulose and will be given general surgery follow-up. Diagnosis: Chronic constipation, fecal impaction Disposition Clinical Impression: Constipation due to opioid therapy Disposition: HOME SELF-CARE Condition: Good Instructions: Constipation (ED), Lactulose (By mouth) Prescriptions: Lactulose 10 gm PO DAILY #450 ml Referrals: Syed Curiel MD [Primary Care Provider] - 1-2 days Navid Molina MD [Medical Doctor] - 1-2 days Time of Disposition: 16:07
--- NOTE | 2017-04-14 15:47 | XR ---
EXAMINATION TYPE: XR KUB DATE OF EXAM: 04/14/2017 3:15 PM CLINICAL HISTORY: Abdominal pain TECHNIQUE: 2 upright views the abdomen were obtained. COMPARISON: None. FINDINGS: Scattered gas is seen in non-distended small bowel loops. No definite free intraperitoneal air is identified. Gas and fecal material is seen in non-distended colon. There is no visceromegaly, for pneumoperitoneum. There are several surgical clips identified in the right upper quadrant. There is a large amount stool noted in the rectum. Postoperative changes are noted to the right femur, as w ell as the left femur. The lung bases are clear and the osseous structures are intact. IMPRESSION: Large amount stool is noted in the rectum.
[2017-04-14 16:50] VITALS: BP 124/73; PULSE 82; RESP 18; TEMP 97.6
== END 2017-04-14 16:45 | disposition home or self-care (01) ==
LOC: EC 13:59
DX: K59.03 Drug induced constipation (principal); T40.2X5A Adverse effect of other opioids, initial encounter; M54.9 Dorsalgia, unspecified; G89.29 Other chronic pain; I25.119 Atherosclerotic heart disease of native coronary artery with unspecified angina pectoris; E78.5 Hyperlipidemia, unspecified; I10 Essential (primary) hypertension; I25.2 Old myocardial infarction; M19.90 Unspecified osteoarthritis, unspecified site; Z85.828 Personal history of other malignant neoplasm of skin; Z79.82 Long term (current) use of aspirin; Z79.899 Other long term (current) drug therapy; Z88.1 Allergy status to other antibiotic agents; Z88.0 Allergy status to penicillin; Z88.6 Allergy status to analgesic agent; Z88.8 Allergy status to other drugs, medicaments and biological substances; Z88.2 Allergy status to sulfonamides
CPT/HCPCS: 74018; 99284